=== PATIENT | female | born 1955 | race Caucasian/White ===

== ENCOUNTER 2024-11-03 21:00 | Outpatient (BNV) | payer OTHER, SELFPAY | END 2024-11-05 21:05 | PROVIDERS: Admitting Provider Psychiatry & Neurology Psychiatry; PCP Internal Medicine; Visit Provider Internal Medicine Cardiovascular Disease | DX: R00.0 Tachycardia, unspecified (principal) | CPT/HCPCS: 93010 ==

== ENCOUNTER 2024-11-03 21:00 | Outpatient (BNV) | payer OTHER, SELFPAY | END 2024-11-04 14:52 | PROVIDERS: Admitting Provider Psychiatry & Neurology Psychiatry; PCP Internal Medicine; Visit Provider Radiology Diagnostic Radiology | DX: R41.0 Disorientation, unspecified (principal) | CPT/HCPCS: 70450 ==

== ENCOUNTER 2024-11-03 21:00 | Inpatient (IN) | payer OTHER, SELFPAY ==
--- NOTE | ~2024-11-03 | CT_ITS ---
EXAMINATION: CT HEAD WITHOUT CONTRAST CLINICAL INFORMATION: Increased confusion. COMPARISON: None available. TECHNIQUE: Contiguous axial imaging was performed from the skull base to vertex without intravenous administration of contrast. This CT examination was performed using dose optimization techniques as appropriate, variously including the following: *Automated exposure control *Adjustment of mA and/or kV according to patient size (this includes techniques or standardized protocols for targeted exams where dose is matched to indication/reason for exam; i.e. extremities or head) *Use of iterative reconstruction technique DLP: 594 mGy/cm. FINDINGS: There is no acute intra-axial, extra-axial bleed, masses or midline shift. There is no acute infarction evolution. There is no edema. The brenner to white matter differentiation is maintained normal. The lateral ventricles are symmetrical in size and configuration without enlargement. Bone windows reveal no calvarial abnormality. Bilateral paranasal sinuses and mastoid air cells are well-aerated. CT/CT head/brain wo IV con IMPRESSION: No acute intracranial process seen. Electronically signed by: Mark John MD 11/04/2024 03:59 PM EDT
[2024-11-03 21:33] VITALS: BMI 17.4
[2024-11-03 21:34] VITALS: BP 154/74; PULSE 77; RESP 18; TEMP 36.6; O2SAT 99
--- NOTE | 2024-11-03 22:43 | PHA.MEDREC ---
Pharmacy Consult ? Medication Reconciliation Pharmacy has reviewed the medication reconciliation, utilized list from [facility], note from Dr. Gonsalez.
--- NOTE | 2024-11-03 22:51 | PC.ADMIT ---
Addendum entered by Frank Haque RN 11/04/24 07:13: patient arrived on unit 11/03/24 at 2145 (9:45pm) not 1225 Original Note: Patient arrived on unit via stretcher 11/03/24@1225. She is a CV, calm, cooperative, A&O to person, place and time but has limited insight and difficulty recalling historical events. She was cooperative with admission process. She reports loss of appetite but ate 2 sandwiches and drank 3 cranberry juices during admission. she also ordered a good breakfast. Methadone on hold d/t ER report she hasn't taken it in a week and we are unable to verify last dose. Patient does not display any S/S withdrawal or discomfort, Allergy to PCN. Psych Dx: Psychotic d/o NOS, Schizophrenia, Medical Dx: Osteoporosis, Chronic Hepatitis, Asthma, Opioid dependence, GERD, abnormal QT interval, and HIV. History of Anxiolytic/Benzo, IV drug use in remission for many years. she denies Tobacco, ETOH or recreational drug use. She is unsure why EMS was called to her apartment, it reportedly was empty of furniture or food, she reportedly threw out all her medications last week.
--- NOTE | 2024-11-03 22:52 | P.CNHOSGPS_ITS ---
History of Present Illness Data of Consult Service Date: 11/03/24 Requesting physician: Joesph Harrell Primary Care Provider: Lakia Valenzuela MD [facility] Reason for consult: Medical Physical Patient is a 69-year-old female with past medical history HIV undetectable on Biktarvy, hepatitis-C, IV drug abuse, opioid and benzodiazepine use disorder on methadone, osteoporosis, , hypertension, weight loss was seen on the [facility] psych unit for admission physical. Patient awake, alert and orientated x3 cooperative with exam. Patient states she no longer had a car and was unable to get to the grocery store and had minimal access to food which led to her weight loss. Patient states her HIV is under control an undetectable on Biktarvy. Patient believes she had hepatitis-C in the past but received treatment. Patient states that she was an IV drug user years ago with no complications including endocarditis. Patient states she does have a murmur. Patient states it has been many years since she used opioids and benzodiazepines excessively. Patient denies experiencing an overdose or requiring cardiopulmonary resuscitation. Patient denies any history of surgeries and reports an allergy to penicillin many many years ago. Patient can not recall the reaction. Patient denies any food allergies. Review of Systems Review of Systems: Patient currently denies any chest pain, shortness of breath at rest or with exertion, abdominal pain, nausea, vomiting, constipation or diarrhea. Patient denies any recent falls or trauma. Patient denies any visual changes, dysphagia or loss of appetite noting patient's weight loss. Pt deneis dysuria, abnormnal vaginal discharge, hx of STDs (chlamydia, gonorrhea, syphillis). Pt believes she may have had Hep C and is now ok after tx? Yes all other systems are reviewed and are negative [facility] Medical History (Updated 11/03/24 @ 23:03 [facility] Osteoporosis HTN (hypertension) Cognitive capacity: Alert and orientated x3 Functional capacity: independent ambulation Patient : No Pertinent family history: Patient would not elaborate Patient did state she had never had any children Social History Household Members: Other Household Members Other:: patient lives alone Housing: Apartment Do you presently have visiting nurse or other home services: No Patient Tobacco Use Status: Never used Tobacco Smoked in Last 30 Days: No e-Cigarette/Vaping Use: Never Used Patient Interested in Nicotine Replacement: No Patient Given Instructions on How to Stop Smoking: No Second Hand Smoke Exposure: No Use of substances other than those prescribed or required for medical reasons: Yes Substance Use Type: Opiates and Other Substance Use Type Other:: Hx benzos Last Used Substance Other:: many years ago Currently Displaying Signs/Symptoms of Drug Intoxication Withdrawal: No Any prior treatment program specific to substance use: Yes Have you been hit, kicked, punched, or otherwise hurt by someone within the past year? If so, by whom?: No Do you feel safe in your current relationship?: No Current Relationship Is there a partner from a previous relationship who is making you feel unsafe now?: No Are you made to feel afraid or neglected: No Advance Directives: No Advance Directives Information Provided: No Do you have a plan to hurt others: No Plan Recently lost weight without trying: Yes How much weight loss: 2-13 pounds Eating poorly because of decreased appetite: Yes Nutrition screen score: 4 Nutrition Risks: No Nutritional Risk Patient : No : No Poor oral hygiene: No Ebola Risk: Travel/Contact With Anyone From Affected Area/s: No Has Patient Experienced Ebola Symptoms: No Meds Allergies Allergy/AdvReac Type Severity Reaction Status Date / Time Penicillins Allergy Unknown Verified 11/03/24 21:14 Active Medications: Current Medications Acetaminophen (Acetaminophen 325 Mg Tablet) 650 mg PO Q6H PRN PRN Reason: Headache/Pain, Scale 1-10 Al Hydroxide/Mg Hydroxide (Magnesium Hydrox/Alum Hydrox 30 Ml Oral.Susp) 30 ml PO Q6H PRN PRN Reason: Heartburn/Nausea Bictegravir/Emtricitabine/Tenofovir (Bictegrav/Emtricit/Tenofov Ala Tablet) 1 tab PO DAILY CHARLEY Clonazepam (Clonazepam 1 Mg Tablet) 1 mg PO BID PRN PRN Reason: anxiety Furosemide (Furosemide 20 Mg Tablet) 20 mg PO DAILY PRN; Protocol PRN Reason: swelling Hydroxyzine HCl (Hydroxyzine Hcl 25 Mg Tablet) 25 mg PO Q6H PRN PRN Reason: mild anxiety Magnesium Hydroxide (Milk Of Magnesia 30 Ml Oral.Susp) 30 ml PO DAILY PRN PRN Reason: Constipation Multivitamins/Vitamin C (Multivitamin Tablet) 1 tab PO DAILY CHARLEY Non-Formulary Medication (Methadone) 43 mg PO DAILY CHARLEY Olanzapine (Olanzapine 2.5 Mg Tablet) 2.5 mg PO Q6H PRN PRN Reason: Agitation Risperidone (Risperidone 1 Mg Tablet) 1 mg PO BEDTIME CHARLEY Trazodone HCl (Trazodone Hcl 50 Mg Tablet) 50 mg PO BEDTIME MRX1 PRN PRN Reason: Insomnia Trazodone HCl (Trazodone Hcl 25 Mg Halftab) 25 mg PO BID PRN PRN Reason: Insomnia Home Medications ?Medication ?Instructions ?Recorded ?Confirmed ?Last Taken ?Type alendronate 70 mg tablet (Fosamax) 70 mg PO QWEEK 11/03/24 11/03/24 Unknown History bictegravir 50 mg-emtricitabine 1 tab PO DAILY 11/03/24 11/03/24 Unknown History 200 mg-tenofovir alafenam 25 mg tablet (Biktarvy) calcium 600 mg (as carbonate)-vit 1 tab PO DAILY 11/03/24 11/03/24 Unknown History D3 10 mcg (400 unit) chewable tablet (Calcium 600 with Vitamin D3) clonazepam 1 mg tablet 1 mg PO BID PRN anxiety 11/03/24 11/03/24 Unknown History furosemide 20 mg tablet 20 mg PO DAILY PRN swelling 11/03/24 11/03/24 Unknown History methadone 10 mg/5 mL oral solution 43 mg PO DAILY 11/03/24 11/03/24 Unknown History multivitamin 1 tab PO DAILY 11/03/24 11/03/24 Unknown History olanzapine 2.5 mg tablet 2.5 mg PO Q6H PRN Agitation 11/03/24 11/03/24 Unknown History risperidone 1 mg tablet (Risperdal) 1 mg PO BEDTIME 11/03/24 11/03/24 Unknown History trazodone 50 mg tablet 25 mg PO BID PRN Insomnia 11/03/24 11/03/24 Unknown History Results ECG Prior ECG tracings: not available for review Assessment and Plan (1) Underweight: Status: Acute (2) HIV (human immunodeficiency virus infection): Status: Acute (3) Opioid use disorder: Status: Acute Plan Patient is a 69-year-old female with past medical history HIV undetectable on Biktarvy, hepatitis-C, IV drug abuse, opioid and benzodiazepine use disorder on methadone, osteoporosis, , hypertension, weight loss seen today for admitting physical and medical review. Most concerning with patient's current weight and BMI. Patient states she has not had access has a car. Patient has been walking excessively and using the bus which prompted further we ight loss with less access to food overall. Patient has been compliant with her medication and her methadone. Patient denies any other current medical issues. Underweight with a BMI of 17.4 -nutritional consultation ordered -adding ensure 3 times daily -per nursing patient has been eating all meals and has a good appetite -daily to weekly weights to monitor -recommend routine labs including CBC and CMP HIV on Biktarvy -patient states her HIV is undetectable on current medication -patient believes she had hepatitis-C in the past but not hepatitis B -no records currently available for past testing, recommend hepatitis panel for baseline -recommend baseline labs CBC and CMP to ensure liver function stable and to rule out anemia Opioid use disorder with history of IV drug abuse -patient denies history of endocarditis but does have a murmur 2/6 systolic -patient appears stable, echocardiogram currently not indicated as pt presents hemodynamically stable and euvolemic -recommend EKG if not already done HTN -continue Lasix, monitor closely -if systolic remains over 140 consistently please reconsult hospitalist for further management -low-sodium diet Thank you for this consultation. Hospitalist will be signing off. Please re- consult with any further concerns or questions. Physical Exam Vital Signs: Last Vital Signs Temp 97.8 F 11/03/24 21:34 Pulse 77 11/03/24 21:34 Resp 18 11/03/24 21:34 BP 154/74 H 11/03/24 21:34 Pulse Ox 99 11/03/24 21:34 O2 Del Method Room Air 11/03/24 21:34 BMI result Body Mass Index 17.4 Alert and orientated X3, able to give adequate hx. Pt knows her medications and indications. Neuro: CN II-X11 intact, no deficits, visual acuity intact EYES: PERRLA, EOM intact ENT: hearing intact, no issues with swallowing, uvula midline, lips moist, nares patent no epistaxis Cardiac: S1 S2 RRR, II/ systolic murmur, no JVD, no edema in Lower ext Pulmonary: lungs clear to ausculation B Abdominal: BS active in all 4 quadrants, no guarding, tenderness, rebounding MSK: strength 5/5 upper and lower extremities : no CVA tenderness no bladder distension Extremities: no edema in lower extremities, PT and DP pulses palpable +2 Psych: mood stable, judgement and insight good SKin: brusing L hand from previous IV site, small abrasion on L agarwal, no drainage or swelling Pt is very thin, underweight. Neuro Cranial nerves: Yes CN's II-XII intact bilaterally
[2024-11-03] MEDS: risperiDONE 1 MG TABLET PO (23:21)
--- NOTE | 2024-11-04 08:16 | PC.NURSE ---
Pt receives methadone therapy. Pt reports she attends [facility] , [address], [facility]. Phone number [phone]. Spoke with KINA Cole in methadone clinic. Kelsey reported that Zakiya receives 43mg dose of methadone daily , she last went to the clinic to miner pick methadone on October 30, where she received a dose to take immediately in front of the RN, and left with 13 doses (of 43 mg methadone) to take home and self administer.
--- NOTE | 2024-11-04 08:52 | PC.NURSE ---
Pt BP: 182/85 pulse 98. Pt denies any symptoms. Non noted.
[2024-11-04] MEDS: Multivitamin TABLET 1 TAB PO (08:53)
[2024-11-04 09:00] VITALS: BP 183/85; PULSE 92; RESP 15; TEMP 36.5; O2SAT 100
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
[2024-11-04 09:28] LABS: Estimated Average Glucose 111 mg/dL; Hemoglobin A1C 124.9273 umol/L; Hemoglobin A1c % 5.5 % (<6.0); Total Hemoglobin (HGBA1C) 3411.0789 umol/L
[2024-11-04 09:31] LABS: Cholesterol 170 mg/dL (<200); HDL Cholesterol 73 mg/dL (>40); LDL Cholesterol Calculated 81 mg/dL (<100); Triglycerides 81 mg/dL (<150)
--- NOTE | 2024-11-04 10:02 | HE.PHANOTE ---
Re Methadone Received verification from Nursing. patient last got 43mg on 11/03/24 @ [facility] ER.
[2024-11-04 10:17] VITALS: BP 119/62
[2024-11-04 10:29] VITALS: BP 191/95
[2024-11-04] MEDS: amLODIPine Besylate 2.5 MG TABLET PO (10:29)
[2024-11-04] MEDS: Bictegrav/Emtricit/Tenofov Ala TABLET 1 TAB PO (10:30)
[2024-11-04] MEDS: methADONE HCl 20 MG/2 ML ORAL.CONC 43 MG PO (10:30)
[2024-11-04 12:08] LABS: MANUAL DIFF FLAG NO
[2024-11-04 12:11] LABS: Basophils Percent Auto 0.3 % (0-2); Eosinophils Absolute Auto 0.1 X10*3/uL (0.0-0.4); Eosinophils Percent Auto 0.9 % (0-4); Hematocrit 37.1 % (37.0-47.0); Hemoglobin 12.2 g/dl (12.0-16.0); Imm Gran Abs Auto 0.02 X10*3/uL (0.00-0.03); Imm Gran Pct Auto 0.3 % (0.0-0.4); Lymphocytes Absolute Auto 1.1 X10*3/uL (1.2-4.9); Lymphocytes Percent Auto 19.5 % (20-40); Mean Corpuscular HGB Conc 32.9 g/dl (31.0-35.0); Mean Corpuscular Hemoglobin 32.3 pg (27.0-33.0); Mean Corpuscular Volume 98.1 fL (80.0-98.0); Mean Platelet Volume 12.8 fL (9.4-12.3); Monocytes Absolute Auto 0.4 X10*3/uL (0.1-1.2); Monocytes Percent Auto 6.8 % (2-11); Neutrophils Absolute Auto 4.2 x10*3/uL (2.0-8.3); Neutrophils Percent Auto 72.2 % (45-73); Platelet Count 107 X10*3/uL (160-400); Red Blood Count 3.78 X10*6/uL (4.20-5.50); Red Cell Distribution Width 12.2 % (11.0-16.0); White Blood Count 5.9 X10*3/uL (4.8-10.8)
[2024-11-04 12:26] LABS: Alanine Aminotransferase 28 U/L (0-31); Albumin Level 4.4 g/dL (3.5-5.0); Alkaline Phosphatase 77 U/L (39-117); Anion Gap 12 (12-20); Aspartate Amino Transferase 29 U/L (5-31); Bilirubin Total 0.5 mg/dL (0.0-1.0); Blood Urea Nitrogen 23 mg/dL (9-16); Calcium 9.3 mg/dL (8.4-10.2); Carbon Dioxide 31 mmol/L (22-29); Chloride 102 mmol/L (96-108); Creatinine Clr Calc Pharmacy 40.4; Estimated Glomerular Filt Rate > 60; Glucose Random 155 mg/dL (60-115); Potassium 4.1 mmol/L (3.3-5.1); Sodium 141 mmol/L (135-145); Total Protein 7.3 g/dL (6.5-8.0)
[2024-11-04 13:01] LABS: Folate 17.8 ng/mL (> or = 4.0); Vitamin B12 676 pg/mL (200-900)
[2024-11-04 20:00] VITALS: BP 175/79; PULSE 92; RESP 16; TEMP 36.6; O2SAT 97
[2024-11-04] MEDS: OLANZapine 5 MG TABLET PO (20:34)
[2024-11-04] MEDS: clonazePAM 0.5 MG TABLET PO (21:47)
[2024-11-05 08:00] VITALS: BP 184/91; PULSE 102; RESP 16; TEMP 37.2; O2SAT 99
[2024-11-05] MEDS: methADONE HCl 20 MG/2 ML ORAL.CONC 43 MG PO (08:24)
[2024-11-05] MEDS: Multivitamin TABLET 1 TAB PO (08:25)
[2024-11-05] MEDS: OLANZapine 2.5 MG TABLET PO (08:25)
[2024-11-05] MEDS: Bictegrav/Emtricit/Tenofov Ala TABLET 1 TAB PO (08:25)
[2024-11-05] MEDS: clonazePAM 0.5 MG TABLET PO (08:41)
[2024-11-05 09:37] VITALS: BP 170/84
[2024-11-05] MEDS: amLODIPine Besylate 2.5 MG TABLET PO (09:46)
[2024-11-05 11:58] LABS: RPR Rapid Plasma Reagin NON-REACTIVE (NON-REACTIVE)
[2024-11-05 13:04] VITALS: BMI 17.4
--- NOTE | 2024-11-05 13:09 | HO.PSYCHPN ---
Subjective Subjective Date of Service: 11/05/24 Reason For Visit: Psychotic disorder unspecified, Schizophrenia Subjective Notes: Conditional Voluntary Interim History: Pt slept through the night. She reports feeling tired, less appetite but attempting to eat. She does not present as overly paranoid, nor over fearful, poverty of thought. No SI/HI. MOCA completed showed significant impairment in executive function. Taking medications as prescribed. BP consistently elevated. Mental Status Exam Mental Status Exam Narrative: Appearance: wearing hospital gown, thin, malnourished, in NAD Behavior: cooperative Psychomotor: no agitation or retardation noted. tremulous. Speech: mostly clear, some delayed in response, spontaneous TP: mostly linear, some poverty of thought TC: having difficulty urinating Mood: anxious Affect: congruent, somewhat constricted SI: denies HI: denies VH/AH: denies but appears at times internally preoccupied. Delusions: no overt delusions, but some bizarre behaviors she can't completely explain like throwing medications because they don't work. giving up furniture Insight/judgment: impaired x 2. Memory/cog: alert, oriented x3 not so much about situation, continues to report she is here due to difficulty urinating. MOCA completed on 11/05/2024 scored 19/30 most impairements in visuospatial/executive (2/5), naming (2/3), language fluency (0/1), recall (3/5). Orientation to month/year/place/day/date/city intact. Diagnostics Vital Signs (24Hr): Vital Signs - 24 hr 11/04/24 20:00 11/05/24 08:00 11/05/24 09:37 Temperature 98 F 98.9 F Pulse Rate 92 102 H Respiratory Rate 16 16 Blood Pressure 175/79 H 184/91 H 170/84 H Pulse Oximetry 97 99 Oxygen Delivery Method Room Air Room Air BMI result Body Mass Index 17.4 Labs 11/04/24 11:53 11/04/24 11:53 Labs: Laboratory Results - last 48 hr 11/04/24 11/04/24 09:12 11:53 WBC 5.9 RBC 3.78 L Hgb 12.2 Hct 37.1 MCV 98.1 H MCH 32.3 MCHC 32.9 RDW 12.2 Plt Count 107 L MPV 12.8 H Immature Gran % (Auto) 0.3 Neut % (Auto) 72.2 Lymph % (Auto) 19.5 L Crenshaw % (Auto) 6.8 Eos % (Auto) 0.9 Baso % (Auto) 0.3 Lymph # (Auto) 1.1 L Cren[place] # (Auto) 0.4 Eos # (Auto) 0.1 Baso # (Auto) 0.0 Abs Immat Gran (auto) 0.02 Absolute Neuts (auto) 4.2 Absolute Nucleated RBC 0.000 Nucleated RBC % (auto) 0.0 Sodium 141 Potassium 4.1 Chloride 102 Carbon Dioxide 31 H Anion Gap 12 BUN 23 H Creatinine 0.91 Estim Creat Clear Calc 40.4 Estimated GFR > 60 Random Glucose 155 H Estimat Average Glucose 111 Hemoglobin A1c % 5.5 Calcium 9.3 Total Bilirubin 0.5 AST 29 ALT 28 Alkaline Phosphatase 77 Total Protein 7.3 Albumin 4.4 Triglycerides 81 Cholesterol 170 LDL Cholesterol, Calc 81 HDL Cholesterol 73 Vitamin B12 676 Folate 17.8 RPR Titer TNP RPR NON-REACTIVE Imaging Radiology Impressions: ITS Impressions Head CT 11/04/24 14:52 IMPRESSION: No acute intracranial process seen. Electronically signed by: Mark John MD 11/04/2024 03:59 PM EDT RP Medications Medications Current Medications Acetaminophen (Acetaminophen 325 Mg Tablet) 650 mg PO Q6H PRN PRN Reason: Headache/Pain, Scale 1-10 Al Hydroxide/Mg Hydroxide (Magnesium Hydrox/Alum Hydrox 30 Ml Oral.Susp) 30 ml PO Q6H PRN PRN Reason: Heartburn/Nausea Bictegravir/Emtricitabine/Tenofovir (Bictegrav/Emtricit/Tenofov Ala Tablet) 1 tab PO DAILY [facility] Last Admin: 11/05/24 08:25 Dose: 1 tab Clonazepam (Clonazepam 0.5 Mg Tablet) 0.5 mg PO BID PRN PRN Reason: anxiety Last Admin: 11/05/24 08:41 Dose: 0.5 mg Furosemide (Furosemide 20 Mg Tablet) 20 mg PO DAILY PRN; Protocol PRN Reason: swelling Magnesium Hydroxide (Milk Of Magnesia 30 Ml Oral.Susp) 30 ml PO DAILY PRN PRN Reason: Constipation Methadone HCl (Methadone Hcl 20 Mg/2 Ml Oral.Conc) 43 mg PO DAILY@0800 [facility] Last Admin: 11/05/24 08:24 Dose: 43 mg Multivitamins/Vitamin C (Multivitamin Tablet) 1 tab PO DAILY [facility] Last Admin: 11/05/24 08:25 Dose: 1 tab Olanzapine (Olanzapine 2.5 Mg Tablet) 2.5 mg PO Q6H PRN PRN Reason: Agitation Olanzapine (Olanzapine 5 Mg Tablet) 5 mg PO BEDTIME [facility] Last Admin: 11/04/24 20:34 Dose: 5 mg Olanzapine (Olanzapine 2.5 Mg Tablet) 2.5 mg PO DAILY [facility] Last Admin: 11/05/24 08:25 Dose: 2.5 mg Trazodone HCl (Trazodone Hcl 50 Mg Tablet) 50 mg PO BEDTIME PRN PRN Reason: Insomnia Allergies Allergies Allergy/AdvReac Type Severity Reaction Status Date / Time Penicillins Allergy Unknown Verified 11/03/24 21:14 Assessment & Plan Assessment & Plan (1) Psychosis: Status: Acute Code(s): F29 - Unspecified psychosis not due to a substance or known physiological condition (2) Cognitive impairment: Status: Acute Code(s): R41.89 - Other symptoms and signs involving cognitive functions and awareness (3) Opioid use disorder: Status: Acute Code(s): F11.90 - Opioid use, unspecified, uncomplicated (4) HIV (human immunodeficiency virus infection): Status: Acute Code(s): Z21 - Asymptomatic human immunodeficiency virus [HIV] infection status Plan Ms. Chun is a 69 year-old woman who was transported via EMS to [facility] after she called 911 reporting difficulty urinating and losing weight. Per EMS, apartment was empty and there was no food. She presented with illogical thought formation, thought blocking, not oriented to situation. medical work up grossly unremarkable. On the unit, pt presents slightly more organized than described in medical records. However, she is not able to explain reasons for her to throw all medications. She reports she planned to move to [place], but unable to elaborate much. Her orientation to situation is also limited as she reports she is here due to difficulty urinating. Whle at [facility] she was started on risperidone, currently on 1mg po qhs. She does presented with EPS. Will change to olanzapine to help also with weight gain. Poor historian. Pending collateral information from sister, Anastasia Chun [phone]. She sees PCP Lakia Valenzuela. HIV provider Khari Zavala. Will contact them as well. Pt with no clear psychiatric hx, presenting with both s/s of psychosis and cognitive/memory deficits. We discussed risks, benefits and alternative treatment options. Will order UA, none completed at [facility]. Will also ordered head CT as part of memory/cognitive assessment. Will obtain HIV viral load, efficacy of tx and potential complications of HIV. Will repeat CBC, slightly lower Hbg on 11/03 from 10/28 at [facility]. A1c 5.5% Lipid panel wnl. I did add RPR. PLAN 11/05 amlodipine 2.5mg po once given for HTN. continue olanzapine. Reason for continued inpatient stay Substantial Risk for: inability to function Time Spent With Patient Time: Total time managing care of this patient today ____ minutes.
--- NOTE | 2024-11-05 13:17 | MHC.CLN ---
NUTRITION DIET=REGULAR. ENSURE TID PROVIDES 1050 KCALS, 60 G PROTEIN. AGREEABLE TO ENSURE SUPPLEMENT AND HAS HAD IN THE PAST, CURRENT INTAKE VERY GOOD. WAS REPORTED THAT PATIENT HAD NO FOOD IN HER HOME. REPORTS WEIGHT LOSS BUT UNKNOWN TIMEFRAME. QUALIFIES MODERATELY MALNOURISHED IN THE CONTEXT OF CHRONIC ILLNESS. FOLLOW FOR INTAKE AT MEALS. ENCOURAGE SNACKS AND SUPPLEMENT ABLE. SEE CLINICAL NUTRITION ASSESSMENT 11/05/24.
[2024-11-05 14:27] LABS: Appearance Urine Clear; Color Urine Yellow; Glucose Urine UA Negative (Negative); Leukocyte Esterase Urine Moderate (2+) (Negative); Nitrite Urine Negative (Negative); UMIC TRIGGER UACC YES; Urine Blood Negative (Negative); Urine Ketones Trace mg/dL (Negative); Urine Protein Negative (Neg-Trace)
[2024-11-05 14:31] LABS: Bacteria Urine None Seen (None Seen); Hyaline Casts Urine 0-2 /LPF (0-2); RBC Urine 0-2 /HPF (0-2); Squamous Epithelial Cell Urine 0-2 /HPF (0-2); UACC Culture Trigger YES
[2024-11-05] MEDS: OLANZapine 5 MG TABLET PO (20:20)
[2024-11-05] MEDS: traZODone HCL 50 MG TABLET PO (20:20)
[2024-11-05 20:50] VITALS: BP 172/84; PULSE 122; RESP 19; TEMP 37.6; O2SAT 96
--- NOTE | 2024-11-05 21:05 | ECG_ITS ---
Test Reason : Tachycardia Blood Pressure : */* mmHG Vent. Rate : 125 BPM Atrial Rate : 125 BPM P-R Int : 94 ms QRS Dur : 80 ms QT Int : 304 ms P-R-T Axes : 70 43 87 degrees QTcB Int : 438 ms Sinus tachycardia with short MN Otherwise normal ECG No previous ECGs available Referred By: Karyn Waggoner Electronically Signed By: Claudy Puentes
[2024-11-05 21:07] VITALS: BP 161/73; PULSE 100; RESP 18; TEMP 37.6; O2SAT 95
[2024-11-06] VITALS (7 sets, daily range): BP systolic 112–185; BP diastolic 56–81; PULSE 93–114; RESP 16–18; TEMP 36.7–37; O2SAT 95–100
[2024-11-06] MEDS: methADONE HCl 20 MG/2 ML ORAL.CONC 43 MG PO (08:28)
[2024-11-06] MEDS: OLANZapine 2.5 MG TABLET PO (08:29)
[2024-11-06] MEDS: amLODIPine Besylate 5 MG TABLET PO (08:29)
[2024-11-06] MEDS: Bictegrav/Emtricit/Tenofov Ala TABLET 1 TAB PO (08:29)
[2024-11-06] MEDS: Multivitamin TABLET 1 TAB PO (08:29)
--- NOTE | 2024-11-06 10:10 | PC.NURSE ---
Karyn Christianson notified of patient's BP 185/81, P 93 at 8am. BP re-check at 10 am 167/74, P 95. Karyn Christianson notified by lostant. Will continue to monitor.
[2024-11-06] MEDS: Furosemide 20 MG TABLET PO (12:47)
--- NOTE | 2024-11-06 14:30 | PC.NURSE ---
At 14:15 BP recheck 156/72, HR 124. Karyn Christianson notified, new order for cardiology consult. Will continue to monitor.
[2024-11-06] MEDS: 0.9 % Sodium Chloride 1,000 ML 100 ML IVCONT (17:56)
[2024-11-06] MEDS: OLANZapine 5 MG TABLET PO (20:38)
[2024-11-07 08:00] VITALS: BP 193/79; PULSE 84; RESP 14; TEMP 36.6; O2SAT 98
[2024-11-07] MEDS: Multivitamin TABLET 1 TAB PO (08:32)
[2024-11-07] MEDS: amLODIPine Besylate 5 MG TABLET PO (08:32)
[2024-11-07] MEDS: Bictegrav/Emtricit/Tenofov Ala TABLET 1 TAB PO (08:32)
[2024-11-07] MEDS: OLANZapine 2.5 MG TABLET PO (08:33)
[2024-11-07] MEDS: methADONE HCl 20 MG/2 ML ORAL.CONC 43 MG PO (08:33)
[2024-11-07 09:05] LABS: HIV RNA PCR Qn Copies NOT DETECTED copies/mL (NOT DETECTED); HIV RNA PCR Qn Log Copies NOT DETECTED (NOT DETECTED)
[2024-11-07 10:30] VITALS: BP 140/67; PULSE 88
[2024-11-07 10:38] VITALS: BP 144/68; PULSE 93
[2024-11-07 12:48] VITALS: BP 144/69; PULSE 87
[2024-11-07] MEDS: 0.9 % Sodium Chloride Flush 3 ML SYRINGE IVFLUSH (13:32)
[2024-11-07] MEDS: 0.9 % Sodium Chloride 1,000 ML 100 ML IVCONT (13:38)
--- NOTE | 2024-11-07 13:49 | MHC.CLN ---
F/U DIET=REGULAR. ENSURE TID PROVIDES 1050 KCALS, 60 G PROTEIN. CURRENT INTAKE VERY GOOD, WITH MOST MEALS 100%. QUALIFIES MODERATELY MALNOURISHED IN THE CONTEXT OF CHRONIC ILLNESS. FOLLOW FOR INTAKE AT MEALS. ENCOURAGE SNACKS AND SUPPLEMENT ABLE.
--- NOTE | 2024-11-07 14:15 | P.CONCA_ITS ---
History of Present Illness History of Present Illness Date of Service: 11/07/24 Requesting physician: Teddy Amaro Chief complaint: Psychotic disorder unspecified, Schizophrenia Narrative: 69-year-old female with schizophrenia who is currently in the inpatient psych facility. We have been asked to see her for dizziness and lightheadedness. She is saying that when she tries to sit up and stand she gets lightheaded. We check orthostatic vital signs on her yesterday and she was orthostatic. She has unintentional weight loss and has not been eating and drinking. It appears home medications have PRN Lasix. [facility] Past Medical History Medical History Osteoporosis HTN (hypertension) Social History Social History Household Members: Other Household Members Other:: patient lives alone Housing: Apartment Do you presently have visiting nurse or other home services: No Patient Tobacco Use Status: Never used Tobacco Smoked in Last 30 Days: No e-Cigarette/Vaping Use: Never Used Patient Interested in Nicotine Replacement: No Patient Given Instructions on How to Stop Smoking: No Second Hand Smoke Exposure: No Use of substances other than those prescribed or required for medical reasons: Yes Substance Use Type: Opiates and Other Substance Use Type Other:: Hx benzos Last Used Substance Other:: many years ago Currently Displaying Signs/Symptoms of Drug Intoxication Withdrawal: No Any prior treatment program specific to substance use: Yes Have you been hit, kicked, punched, or otherwise hurt by someone within the past year? If so, by whom?: No Do you feel safe in your current relationship?: No Current Relationship Is there a partner from a previous relationship who is making you feel unsafe now?: No Are you made to feel afraid or neglected: No Advance Directives: No Advance Directives Information Provided: No Do you have thoughts of harming others: None Do you have a plan to hurt others: No Plan Recently lost weight without trying: Yes How much weight loss: 2-13 pounds Eating poorly because of decreased appetite: Yes Nutrition screen score: 4 Nutrition Risks: No Nutritional Risk Patient : No : No Poor oral hygiene: No service: No Sexual orientation: Straight/Heterosexual Travel History Ebola Risk: Travel/Contact With Anyone From Affected Area/s: No Has Patient Experienced Ebola Symptoms: No Meds Allergies Allergy/AdvReac Type Severity Reaction Status Date / Time Penicillins Allergy Unknown Verified 11/03/24 21:14 Active Medications: Current Medications Acetaminophen (Acetaminophen 325 Mg Tablet) 650 mg PO Q6H PRN PRN Reason: Headache/Pain, Scale 1-10 Al Hydroxide/Mg Hydroxide (Magnesium Hydrox/Alum Hydrox 30 Ml Oral.Susp) 30 ml PO Q6H PRN PRN Reason: Heartburn/Nausea Amlodipine Besylate (Amlodipine Besylate 5 Mg Tablet) 5 mg PO DAILY [facility]; Protocol Last Admin: 11/07/24 08:32 Dose: 5 mg Bictegravir/Emtricitabine/Tenofovir (Bictegrav/Emtricit/Tenofov Ala Tablet) 1 tab PO DAILY [facility] Last Admin: 11/07/24 08:32 Dose: 1 tab Clonazepam (Clonazepam 0.5 Mg Tablet) 0.5 mg PO BID PRN PRN Reason: anxiety Last Admin: 11/05/24 08:41 Dose: 0.5 mg Furosemide (Furosemide 20 Mg Tablet) 20 mg PO DAILY PRN; Protocol PRN Reason: swelling Last Admin: 11/06/24 12:47 Dose: 20 mg Sodium Chloride (Ns) 1,000 mls @ 100 mls/hr IVCONT .Q10H [facility] Last Admin: 11/07/24 13:38 Dose: 100 mls/hr Magnesium Hydroxide (Milk Of Magnesia 30 Ml Oral.Susp) 30 ml PO DAILY PRN PRN Reason: Constipation Methadone HCl (Methadone Hcl 20 Mg/2 Ml Oral.Conc) 43 mg PO DAILY@0800 [facility] Last Admin: 11/07/24 08:33 Dose: 43 mg Multivitamins/Vitamin C (Multivitamin Tablet) 1 tab PO DAILY [facility] Last Admin: 11/07/24 08:32 Dose: 1 tab Olanzapine (Olanzapine 2.5 Mg Tablet) 2.5 mg PO Q6H PRN PRN Reason: Agitation Olanzapine (Olanzapine 5 Mg Tablet) 5 mg PO BEDTIME [facility] Last Admin: 11/06/24 20:38 Dose: 5 mg Olanzapine (Olanzapine 2.5 Mg Tablet) 2.5 mg PO DAILY [facility] Last Admin: 11/07/24 08:33 Dose: 2.5 mg Sodium Chloride (0.9 % Sodium Chloride Flush 3 Ml Syringe) 3 ml IVFLUSH QSHIFT [facility] Last Admin: 11/07/24 13:32 Dose: 3 ml Trazodone HCl (Trazodone Hcl 50 Mg Tablet) 50 mg PO BEDTIME PRN PRN Reason: Insomnia Last Admin: 11/05/24 20:20 Dose: 50 mg Home Medications ?Medication ?Instructions ?Recorded ?Confirmed ?Last Taken ?Type alendronate 70 mg tablet (Fosamax) 70 mg PO QWEEK 11/03/24 11/03/24 Unknown History bictegravir 50 mg-emtricitabine 1 tab PO DAILY 11/03/24 11/03/24 Unknown History 200 mg-tenofovir alafenam 25 mg tablet (Biktarvy) calcium 600 mg (as carbonate)-vit 1 tab PO DAILY 11/03/24 11/03/24 Unknown History D3 10 mcg (400 unit) chewable tablet (Calcium 600 with Vitamin D3) clonazepam 1 mg tablet 1 mg PO BID PRN anxiety 11/03/24 11/03/24 Unknown History furosemide 20 mg tablet 20 mg PO DAILY PRN swelling 11/03/24 11/03/24 Unknown History methadone 10 mg/5 mL oral solution 43 mg PO DAILY 11/03/24 11/04/24 Unknown History multivitamin 1 tab PO DAILY 11/03/24 11/03/24 Unknown History olanzapine 2.5 mg tablet 2.5 mg PO Q6H PRN Agitation 11/03/24 11/03/24 Unknown History risperidone 1 mg tablet (Risperdal) 1 mg PO BEDTIME 11/03/24 11/03/24 Unknown History trazodone 50 mg tablet 25 mg PO BID PRN Insomnia 11/03/24 11/03/24 Unknown History Physical Exam 2 Vital Signs: Vital Signs: Last Vital Signs Temp 97.8 F 11/07/24 08:00 Pulse 87 11/07/24 12:48 Resp 14 11/07/24 08:00 BP 144/69 H 11/07/24 12:48 Pulse Ox 98 11/07/24 08:00 O2 Del Method Room Air 11/07/24 08:00 BMI result Body Mass Index 17.4 GENERAL APPEARANCE: in no acute distress, thin/malnourished. NECK: no carotid bruit, no jugular venous distention. SKIN: no suspicious lesions, warm and dry. HEART: no murmurs, regular rate and rhythm. LUNGS: clear to auscultation bilaterally. ABDOMEN: soft, nontender. EXTREMITIES: no edema. PERIPHERAL PULSES: equal. NEUROLOGIC: No gross deficits, AAO X 3 Objective Labs and Meds 11/04/24 11:53 11/04/24 11:53 Lab results: Laboratory Results - last 24 hr 11/04/24 11:53 HIV-1 RNA copies/mL NOT DETECTED HIV-1 RNA logcopies/mL NOT DETECTED Assessment and Plan (1) Dizziness: Status: Acute Plan 69 year female with schizophrenia who has been complaining of dizziness. We checked orthostatic vital signs yesterday and they were positive. She was given 1 L of fluids. She is saying she is feeling better today. Her main issue is that she is not eating and drinking and has unintentional weight loss currently. This needs further workup. Encouraged her to drink more. Avoid any diuretics. Blood pressure is elevated. I think she can be started on 2.5 mg amlodipine daily. Would not titrate the dose currently. Thank you for allowing me to participate in the care of your patient. Please feel free to contact me if you have any questions. Procedures Date of Service Date of Service: 11/07/24
--- NOTE | 2024-11-07 15:41 | P.PNPSI_ITS ---
Subjective Subjective Date of Service: 11/07/24 Reason For Visit: Psychotic disorder unspecified, Schizophrenia Subjective Notes: Conditional Voluntary Interim History: Pt slept through the night. She reported feeling dizzy, yesterday had ortho changes to BP, was given IV fluids. She was seen by cardiology today. Although BP high, seems to be more erratic as it has gone from sbp in 190's to 119 after low dose of amlodipine. Cardiology recommends not to give higher dose of amlodipine than 2.5mg po daily. Pt reports she feels so, so She denies SI/HI. No overt psychosis or delusions. She is taking medications as prescribed. Medication Compliance: Yes Side effects from medications: No Diagnostics Vital Signs (24Hr): Vital Signs - 24 hr 11/06/24 15:50 11/06/24 15:52 11/06/24 15:54 Temperature Pulse Rate 94 104 H 114 H Respiratory Rate Blood Pressure 123/60 112/56 L 121/59 L Pulse Oximetry Oxygen Delivery Method 11/06/24 20:00 11/07/24 08:00 11/07/24 10:30 Temperature 98.1 F 97.8 F Pulse Rate 95 84 88 Respiratory Rate 16 14 Blood Pressure 135/70 193/79 H 140/67 H Pulse Oximetry 95 98 Oxygen Delivery Method Room Air Room Air 11/07/24 10:38 11/07/24 12:48 Temperature Pulse Rate 93 87 Respiratory Rate Blood Pressure 144/68 H 144/69 H Pulse Oximetry Oxygen Delivery Method BMI result Body Mass Index 17.4 Labs 11/04/24 11:53 11/04/24 11:53 Labs: Laboratory Results - last 48 hr 11/04/24 11:53 HIV-1 RNA copies/mL NOT DETECTED HIV-1 RNA logcopies/mL NOT DETECTED Imaging Radiology Impressions: ITS Impressions Head CT 11/04/24 14:52 IMPRESSION: No acute intracranial process seen. Electronically signed by: Mark John MD 11/04/2024 03:59 PM EDT RP Medications Medications Current Medications Acetaminophen (Acetaminophen 325 Mg Tablet) 650 mg PO Q6H PRN PRN Reason: Headache/Pain, Scale 1-10 Al Hydroxide/Mg Hydroxide (Magnesium Hydrox/Alum Hydrox 30 Ml Oral.Susp) 30 ml PO Q6H PRN PRN Reason: Heartburn/Nausea Amlodipine Besylate (Amlodipine Besylate 5 Mg Tablet) 5 mg PO DAILY [facility]; Protocol Last Admin: 11/07/24 08:32 Dose: 5 mg Bictegravir/Emtricitabine/Tenofovir (Bictegrav/Emtricit/Tenofov Ala Tablet) 1 tab PO DAILY [facility] Last Admin: 11/07/24 08:32 Dose: 1 tab Clonazepam (Clonazepam 0.5 Mg Tablet) 0.5 mg PO BID PRN PRN Reason: anxiety Last Admin: 11/05/24 08:41 Dose: 0.5 mg Furosemide (Furosemide 20 Mg Tablet) 20 mg PO DAILY PRN; Protocol PRN Reason: swelling Last Admin: 11/06/24 12:47 Dose: 20 mg Sodium Chloride (Ns) 1,000 mls @ 100 mls/hr IVCONT .Q10H [facility] Last Admin: 11/07/24 13:38 Dose: 100 mls/hr Magnesium Hydroxide (Milk Of Magnesia 30 Ml Oral.Susp) 30 ml PO DAILY PRN PRN Reason: Constipation Methadone HCl (Methadone Hcl 20 Mg/2 Ml Oral.Conc) 43 mg PO DAILY@0800 [facility] Last Admin: 11/07/24 08:33 Dose: 43 mg Multivitamins/Vitamin C (Multivitamin Tablet) 1 tab PO DAILY [facility] Last Admin: 11/07/24 08:32 Dose: 1 tab Olanzapine (Olanzapine 2.5 Mg Tablet) 2.5 mg PO Q6H PRN PRN Reason: Agitation Olanzapine (Olanzapine 5 Mg Tablet) 5 mg PO BEDTIME [facility] Last Admin: 11/06/24 20:38 Dose: 5 mg Olanzapine (Olanzapine 2.5 Mg Tablet) 2.5 mg PO DAILY [facility] Last Admin: 11/07/24 08:33 Dose: 2.5 mg Sodium Chloride (0.9 % Sodium Chloride Flush 3 Ml Syringe) 3 ml IVFLUSH QSHIFT [facility] Last Admin: 11/07/24 13:32 Dose: 3 ml Trazodone HCl (Trazodone Hcl 50 Mg Tablet) 50 mg PO BEDTIME PRN PRN Reason: Insomnia Last Admin: 11/05/24 20:20 Dose: 50 mg Allergies Allergies Allergy/AdvReac Type Severity Reaction Status Date / Time Penicillins Allergy Unknown Verified 11/03/24 21:14 Assessment & Plan Assessment & Plan (1) Psychosis: Status: Acute Code(s): F29 - Unspecified psychosis not due to a substance or known physiological condition (2) Cognitive impairment: Status: Acute Code(s): R41.89 - Other symptoms and signs involving cognitive functions and awareness (3) Dizziness: Status: Acute Code(s): R42 - Dizziness and giddiness Assessment and Plan: Per cardiology: We checked orthostatic vital signs yesterday and they were positive. She was given 1 L of fluids. She is saying she is feeling better today. Her main issue is that she is not eating and drinking and has unintentional weight loss currently. This needs further workup. Encouraged her to drink more. Avoid any diuretics. Blood pressure is elevated. I think she can be started on 2.5 mg amlodipine daily. Would not titrate the dose currently. (4) Opioid use disorder: Status: Acute Code(s): F11.90 - Opioid use, unspecified, uncomplicated (5) HIV (human immunodeficiency virus infection): Status: Acute Code(s): Z21 - Asymptomatic human immunodeficiency virus [HIV] infection status Plan Ms. Chun is a 69 year-old woman who was transported via EMS to [facility] after she called 911 reporting difficulty urinating and losing weight. Per EMS, apartment was empty and there was no food. She presented with illogical thought formation, thought blocking, not oriented to situation. medical work up grossly unremarkable. On the unit, pt presents slightly more organized than described in medical records. However, she is not able to explain reasons for her to throw all medications. She reports she planned to move to [place], but unable to elaborate much. Her orientation to situation is also limited as she reports she is here due to difficulty urinating. Whle at [facility] she was started on risperidone, currently on 1mg po qhs. She does presented with EPS. Will change to olanzapine to help also with weight gain. Poor historian. Pending collateral information from sister, Anastasia Chun [phone]. She sees PCP Lakia Valenzuela. HIV provider Khari Zavala. Will contact them as well. Pt with no clear psychiatric hx, presenting with both s/s of psychosis and cognitive/memory deficits. We discussed risks, benefits and alternative treatment options. Will order UA, none completed at [facility]. Will also ordered head CT as part of memory/cognitive assessment. Will obtain HIV viral load, efficacy of tx and potential complications of HIV. Will repeat CBC, slightly lower Hbg on 11/03 from 10/28 at [facility]. A1c 5.5% Lipid panel wnl. I did add RPR. PLAN 11/05 amlodipine 2.5mg po once given for HTN. continue olanzapine. 11/06 continue tx. BP elevated again. RN reported bilat edema, given lasix 11/07 seen by cardiology due to dizziness, somewhat erradic BP as it can be elevated but drops drastically with lower doses of amlodipine. Cardiology reports keeping amlodipine at 2.5mg po daily, not increasing this any further. encourage fluids. hospitalist consult for unexpeted weight loss and anorexia. Reason for continued inpatient stay Substantial Risk for: inability to function Time Spent With Patient Time: Total time managing care of this patient today ____ minutes.
[2024-11-07] MEDS: clonazePAM 0.5 MG TABLET PO (18:35)
--- NOTE | 2024-11-07 18:38 | PC.NURSE ---
Lyric phillip stated she was having difficulty breathing. BP was elevated 172/86 and her HR was 109. She said she felt very anxious thinking she ate her dinner too fast. Given PRN klonopin and reassurance.
[2024-11-07 19:57] VITALS: BP 170/77; PULSE 99; RESP 18; TEMP 37.2; O2SAT 94
--- NOTE | 2024-11-07 20:08 | PM.EVENT ---
Event Note Date of Service: 11/07/24 Event Note: A new order was placed per Psychiatry for hospitalist consultation for noted weight loss with a BMI of 17.4. Patient already been seen on 11/03/2024 and recommendations were already made for nutritional consultation and ensure was started. Patient's weight should be monitored daily. Patient's albumin noted to be 4.4, WNL. Patient had stated prior to admission that she had limited resources to obtain food and was eating last over a long period of time. Patient has no correlating physical symptoms including nausea, vomiting, and abdominal pain, shortness of breath or hypoxia at rest or with exertion. Currently no indication to do diagnostics including CT of the chest and abdomen. Patient will require follow-up as an outpatient to monitor her weight closely. Also requested routine labs which have been reviewed. Platelets came back at 108 and this is not relatively concerning as the platelet count remains above 100,000 with no evidence of spontaneous bleeding. Patient can follow-up as an outpatient with her PCP and/or Hematology. In addition patient was seen by Cardiology for evidence of orthostasis. Amlodipine is now 2.5 mg daily and patient should continue this with follow-up blood pressures as needed. This plan was reviewed met with my attending Dr. French and are available for further consultation if needed but at this time we will remain signed off. The nutritional consultation was placed. Time Spent With Patient Time: Total time managing care of this patient today ____ minutes.
[2024-11-07] MEDS: OLANZapine 5 MG TABLET PO (20:22)
[2024-11-07] MEDS: traZODone HCL 50 MG TABLET PO (20:22)
--- NOTE | 2024-11-08 00:38 | PC.NURSE ---
Issues with IVF order/provider notified/IVF order discontinued by the provider. Provider also notified us to discontinue IV access and flush order/discontinued as ordered/patient compliant.
[2024-11-08 07:57] VITALS: BP 183/81; PULSE 113; RESP 16; TEMP 36.4; O2SAT 96
[2024-11-08] MEDS: methADONE HCl 20 MG/2 ML ORAL.CONC 43 MG PO (07:59)
[2024-11-08] MEDS: OLANZapine 2.5 MG TABLET PO (08:00)
[2024-11-08] MEDS: amLODIPine Besylate 2.5 MG TABLET PO (08:00)
[2024-11-08] MEDS: Multivitamin TABLET 1 TAB PO (08:00)
[2024-11-08] MEDS: Bictegrav/Emtricit/Tenofov Ala TABLET 1 TAB PO (08:01)
[2024-11-08 08:30] VITALS: BP 176/84
[2024-11-08 09:14] VITALS: BP 160/76
--- NOTE | 2024-11-08 14:39 | P.PNPSI_ITS ---
Subjective Subjective Date of Service: 11/08/24 Reason For Visit: Psychotic disorder unspecified, Schizophrenia Interim History: no complaints or requests. per staff, poor PO intake. pedal edema improved with decrease in norvasc. got 2L IV fluids yesterday. Mental Status Exam Mental Status Exam Narrative: Appearance: wearing hospital gown, thin, malnourished, in NAD Behavior: cooperative Psychomotor: no agitation or retardation noted. tremulous. Speech: mostly clear, some delayed in response, spontaneous TP: mostly linear, some poverty of thought TC: no complaints Mood: not expressed Affect: congruent, somewhat constricted SI: denies HI: denies VH/AH: denies but appears at times internally preoccupied. Delusions: no overt delusions, but some bizarre behaviors she can't completely explain like throwing medications because they don't work. giving up furniture Insight/judgment: impaired x 2. Memory/cog: alert, oriented x3 not so much about situation, continues to report she is here due to difficulty urinating. MOCA completed on 11/05/2024 scored 19/30 most impairements in visuospatial/executive (2/5), naming (2/3), language fluency (0/1), recall (3/5). Orientation to month/year/place/day/date/city intact. Diagnostics Vital Signs (24Hr): Vital Signs - 24 hr 11/07/24 19:57 11/08/24 07:57 11/08/24 08:30 Temperature 98.9 F 97.5 F Pulse Rate 99 113 H Respiratory Rate 18 16 Blood Pressure 170/77 H 183/81 H 176/84 H Pulse Oximetry 94 96 Oxygen Delivery Method Room Air Room Air 11/08/24 09:14 Temperature Pulse Rate Respiratory Rate Blood Pressure 160/76 H Pulse Oximetry Oxygen Delivery Method BMI result Body Mass Index 17.4 Labs 11/04/24 11:53 11/04/24 11:53 Labs: Laboratory Results - last 48 hr 11/04/24 11:53 HIV-1 RNA copies/mL NOT DETECTED HIV-1 RNA logcopies/mL NOT DETECTED Imaging Radiology Impressions: ITS Impressions Head CT 11/04/24 14:52 IMPRESSION: No acute intracranial process seen. Electronically signed by: Mark John MD 11/04/2024 03:59 PM EDT Medications Medications Current Medications Acetaminophen (Acetaminophen 325 Mg Tablet) 650 mg PO Q6H PRN PRN Reason: Headache/Pain, Scale 1-10 Al Hydroxide/Mg Hydroxide (Magnesium Hydrox/Alum Hydrox 30 Ml Oral.Susp) 30 ml PO Q6H PRN PRN Reason: Heartburn/Nausea Amlodipine Besylate (Amlodipine Besylate 2.5 Mg Tablet) 2.5 mg PO DAILY [facility]; Protocol Last Admin: 11/08/24 08:00 Dose: 2.5 mg Bictegravir/Emtricitabine/Tenofovir (Bictegrav/Emtricit/Tenofov Ala Tablet) 1 tab PO DAILY [facility] Last Admin: 11/08/24 08:01 Dose: 1 tab Clonazepam (Clonazepam 0.5 Mg Tablet) 0.5 mg PO BID PRN PRN Reason: anxiety Last Admin: 11/07/24 18:35 Dose: 0.5 mg Magnesium Hydroxide (Milk Of Magnesia 30 Ml Oral.Susp) 30 ml PO DAILY PRN PRN Reason: Constipation Methadone HCl (Methadone Hcl 20 Mg/2 Ml Oral.Conc) 43 mg PO DAILY@0800 [facility] Last Admin: 11/08/24 07:59 Dose: 43 mg Multivitamins/Vitamin C (Multivitamin Tablet) 1 tab PO DAILY [facility] Last Admin: 11/08/24 08:00 Dose: 1 tab Olanzapine (Olanzapine 2.5 Mg Tablet) 2.5 mg PO Q6H PRN PRN Reason: Agitation Olanzapine (Olanzapine 5 Mg Tablet) 5 mg PO BEDTIME [facility] Last Admin: 11/07/24 20:22 Dose: 5 mg Olanzapine (Olanzapine 2.5 Mg Tablet) 2.5 mg PO DAILY [facility] Last Admin: 11/08/24 08:00 Dose: 2.5 mg Trazodone HCl (Trazodone Hcl 50 Mg Tablet) 50 mg PO BEDTIME PRN PRN Reason: Insomnia Last Admin: 11/07/24 20:22 Dose: 50 mg Allergies Allergies Allergy/AdvReac Type Severity Reaction Status Date / Time Penicillins Allergy Unknown Verified 11/03/24 21:14 Assessment & Plan Assessment & Plan (1) Psychosis: Status: Acute Code(s): F29 - Unspecified psychosis not due to a substance or known physiological condition (2) Cognitive impairment: Status: Acute Code(s): R41.89 - Other symptoms and signs involving cognitive functions and awareness (3) Dizziness: Status: Acute Code(s): R42 - Dizziness and giddiness Assessment and Plan: Per cardiology: We checked orthostatic vital signs yesterday and they were positive. She was given 1 L of fluids. She is saying she is feeling better today. Her main issue is that she is not eating and drinking and has unintentional weight loss currently. This needs further workup. Encouraged her to drink more. Avoid any diuretics. Blood pressure is elevated. I think she can be started on 2.5 mg amlodipine daily. Would not titrate the dose currently. (4) Opioid use disorder: Status: Acute Code(s): F11.90 - Opioid use, unspecified, uncomplicated (5) HIV (human immunodeficiency virus infection): Status: Acute Code(s): Z21 - Asymptomatic human immunodeficiency virus [HIV] infection status Plan Ms. Chun is a 69 year-old woman who was transported via EMS to [facility] after she called 911 reporting difficulty urinating and losing weight. Per EMS, apartment was empty and there was no food. She presented with illogical thought formation, thought blocking, not oriented to situation. medical work up grossly unremarkable. On the unit, pt presents slightly more organized than described in medical records. However, she is not able to explain reasons for her to throw all medications. She reports she planned to move to [place], but unable to elaborate much. Her orientation to situation is also limited as she reports she is here due to difficulty urinating. Whle at [facility] she was started on risperidone, currently on 1mg po qhs. She does presented with EPS. Will change to olanzapine to help also with weight gain. Poor historian. Pending collateral information from sister, Anastasia Chun [phone]. She sees PCP Lakia Valenzuela. HIV provider Khari Zavala. Will contact them as well. Pt with no clear psychiatric hx, presenting with both s/s of psychosis and cognitive/memory deficits. We discussed risks, benefits and alternative treatment options. Will order UA, none completed at [facility]. Will also ordered head CT as part of memory/cognitive assessment. Will obtain HIV viral load, efficacy of tx and potential complications of HIV. Will repeat CBC, slightly lower Hbg on 11/03 from 10/28 at [facility]. A1c 5.5% Lipid panel wnl. I did add RPR. PLAN 11/05 amlodipine 2.5mg po once given for HTN. continue olanzapine. 11/06 continue tx. BP elevated again. RN reported bilat edema, given lasix 11/07 seen by cardiology due to dizziness, somewhat erradic BP as it can be elevated but drops drastically with lower doses of amlodipine. Cardiology reports keeping amlodipine at 2.5mg po daily, not increasing this any further. encourage fluids. hospitalist consult for unexpeted weight loss and anorexia. 11/08: 2L IV fluids yesterday. no complaints today. continue current mgmt. Reason for continued inpatient stay Substantial Risk for: inability to function Time Spent With Patient Time: Total time managing care of this patient today ____ minutes.
[2024-11-08 19:53] VITALS: BP 160/83; PULSE 103; TEMP 37.1; O2SAT 95
[2024-11-08] MEDS: Acetaminophen 325 MG TABLET 650 MG PO (20:12)
[2024-11-08] MEDS: OLANZapine 5 MG TABLET PO (20:12)
[2024-11-08] MEDS: traZODone HCL 50 MG TABLET PO (20:13)
[2024-11-08] MEDS: clonazePAM 0.5 MG TABLET PO (20:13)
[2024-11-09 08:00] VITALS: BP 172/80; PULSE 98; RESP 18; TEMP 36.7; O2SAT 99
[2024-11-09] MEDS: methADONE HCl 20 MG/2 ML ORAL.CONC 43 MG PO (08:06)
[2024-11-09] MEDS: Bictegrav/Emtricit/Tenofov Ala TABLET 1 TAB PO (08:07)
[2024-11-09] MEDS: OLANZapine 2.5 MG TABLET PO (08:07)
[2024-11-09] MEDS: Multivitamin TABLET 1 TAB PO (08:07)
[2024-11-09] MEDS: amLODIPine Besylate 2.5 MG TABLET PO (08:08)
[2024-11-09 09:27] VITALS: BP 155/73
[2024-11-09 09:33] VITALS: BMI 19.0
[2024-11-09] MEDS: clonazePAM 0.5 MG TABLET PO ×2 (13:51→20:46)
--- NOTE | 2024-11-09 13:53 | HO.PSYCHPN ---
Subjective Subjective Date of Service: 11/09/24 Reason For Visit: Psychotic disorder unspecified, Schizophrenia Interim History: no questions or complaints. per staff, slept well. c/o anxiety, got klonopin last night. Mental Status Exam Mental Status Exam Narrative: Appearance: wearing hospital gown, thin, malnourished, in NAD Behavior: cooperative Psychomotor: no agitation or retardation noted. tremulous. Speech: mostly clear, some delayed in response, spontaneous TP: mostly linear, some poverty of thought TC: no complaints Mood: not expressed Affect: congruent, somewhat constricted SI: denies HI: denies VH/AH: denies but appears at times internally preoccupied. Delusions: no overt delusions, but some bizarre behaviors she can't completely explain like throwing medications because they don't work. giving up furniture Insight/judgment: impaired x 2. Memory/cog: alert, oriented x3 not so much about situation, continues to report she is here due to difficulty urinating. MOCA completed on 11/05/2024 scored 19/30 most impairements in visuospatial/executive (2/5), naming (2/3), language fluency (0/1), recall (3/5). Orientation to month/year/place/day/date/city intact. Diagnostics Vital Signs (24Hr): Vital Signs - 24 hr 11/08/24 19:53 11/09/24 08:00 11/09/24 09:27 Temperature 98.7 F 98.1 F Pulse Rate 103 H 98 Respiratory Rate 18 Blood Pressure 160/83 H 172/80 H 155/73 H Pulse Oximetry 95 99 Oxygen Delivery Method Room Air Room Air BMI result Body Mass Index 19.0 Labs 11/04/24 11:53 11/04/24 11:53 Imaging Radiology Impressions: ITS Impressions Head CT 11/04/24 14:52 IMPRESSION: No acute intracranial process seen. Electronically signed by: Mark John MD 11/04/2024 03:59 PM EDT Medications Medications Current Medications Acetaminophen (Acetaminophen 325 Mg Tablet) 650 mg PO Q6H PRN PRN Reason: Headache/Pain, Scale 1-10 Last Admin: 11/08/24 20:12 Dose: 650 mg Al Hydroxide/Mg Hydroxide (Magnesium Hydrox/Alum Hydrox 30 Ml Oral.Susp) 30 ml PO Q6H PRN PRN Reason: Heartburn/Nausea Amlodipine Besylate (Amlodipine Besylate 2.5 Mg Tablet) 2.5 mg PO DAILY [facility]; Protocol Last Admin: 11/09/24 08:08 Dose: 2.5 mg Bictegravir/Emtricitabine/Tenofovir (Bictegrav/Emtricit/Tenofov Ala Tablet) 1 tab PO DAILY [facility] Last Admin: 11/09/24 08:07 Dose: 1 tab Clonazepam (Clonazepam 0.5 Mg Tablet) 0.5 mg PO BID PRN PRN Reason: moderate anxiety Last Admin: 11/09/24 13:51 Dose: 0.5 mg Magnesium Hydroxide (Milk Of Magnesia 30 Ml Oral.Susp) 30 ml PO DAILY PRN PRN Reason: Constipation Methadone HCl (Methadone Hcl 20 Mg/2 Ml Oral.Conc) 43 mg PO DAILY@0800 [facility] Last Admin: 11/09/24 08:06 Dose: 43 mg Multivitamins/Vitamin C (Multivitamin Tablet) 1 tab PO DAILY [facility] Last Admin: 11/09/24 08:07 Dose: 1 tab Olanzapine (Olanzapine 2.5 Mg Tablet) 2.5 mg PO Q6H PRN PRN Reason: Agitation Olanzapine (Olanzapine 5 Mg Tablet) 5 mg PO BEDTIME [facility] Last Admin: 11/08/24 20:12 Dose: 5 mg Olanzapine (Olanzapine 2.5 Mg Tablet) 2.5 mg PO DAILY [facility] Last Admin: 11/09/24 08:07 Dose: 2.5 mg Trazodone HCl (Trazodone Hcl 50 Mg Tablet) 50 mg PO BEDTIME PRN PRN Reason: Insomnia Last Admin: 11/08/24 20:13 Dose: 50 mg Allergies Allergies Allergy/AdvReac Type Severity Reaction Status Date / Time Penicillins Allergy Unknown Verified 11/03/24 21:14 Assessment & Plan Assessment & Plan (1) Psychosis: Status: Acute Code(s): F29 - Unspecified psychosis not due to a substance or known physiological condition (2) Cognitive impairment: Status: Acute Code(s): R41.89 - Other symptoms and signs involving cognitive functions and awareness (3) Dizziness: Status: Acute Code(s): R42 - Dizziness and giddiness Assessment and Plan: Per cardiology: We checked orthostatic vital signs yesterday and they were positive. She was given 1 L of fluids. She is saying she is feeling better today. Her main issue is that she is not eating and drinking and has unintentional weight loss currently. This needs further workup. Encouraged her to drink more. Avoid any diuretics. Blood pressure is elevated. I think she can be started on 2.5 mg amlodipine daily. Would not titrate the dose currently. (4) Opioid use disorder: Status: Acute Code(s): F11.90 - Opioid use, unspecified, uncomplicated (5) HIV (human immunodeficiency virus infection): Status: Acute Code(s): Z21 - Asymptomatic human immunodeficiency virus [HIV] infection status Plan Ms. Chun is a 69 year-old woman who was transported via EMS to [facility] after she called 911 reporting difficulty urinating and losing weight. Per EMS, apartment was empty and there was no food. She presented with illogical thought formation, thought blocking, not oriented to situation. medical work up grossly unremarkable. On the unit, pt presents slightly more organized than described in medical records. However, she is not able to explain reasons for her to throw all medications. She reports she planned to move to [place], but unable to elaborate much. Her orientation to situation is also limited as she reports she is here due to difficulty urinating. Whle at [facility] she was started on risperidone, currently on 1mg po qhs. She does presented with EPS. Will change to olanzapine to help also with weight gain. Poor historian. Pending collateral information from sister, Anastasia Chun [phone]. She sees PCP Lakia Valenzuela. HIV provider Khari Zavala. Will contact them as well. Pt with no clear psychiatric hx, presenting with both s/s of psychosis and cognitive/memory deficits. We discussed risks, benefits and alternative treatment options. Will order UA, none completed at [facility]. Will also ordered head CT as part of memory/cognitive assessment. Will obtain HIV viral load, efficacy of tx and potential complications of HIV. Will repeat CBC, slightly lower Hbg on 11/03 from 10/28 at [facility]. A1c 5.5% Lipid panel wnl. I did add RPR. PLAN 11/05 amlodipine 2.5mg po once given for HTN. continue olanzapine. 11/06 continue tx. BP elevated again. RN reported bilat edema, given lasix 5/2 seen by cardiology due to dizziness, somewhat erradic BP as it can be elevated but drops drastically with lower doses of amlodipine. Cardiology reports keeping amlodipine at 2.5mg po daily, not increasing this any further. encourage fluids. hospitalist consult for unexpeted weight loss and anorexia. 11/08: 2L IV fluids yesterday. no complaints today. continue current mgmt. 11/09: stable presentation. recheck BMP. Reason for continued inpatient stay Substantial Risk for: inability to function Time Spent With Patient Time: Total time managing care of this patient today ____ minutes.
[2024-11-09 15:22] LABS: Anion Gap 12 (12-20); Blood Urea Nitrogen 30 mg/dL (9-16); Calcium 9.2 mg/dL (8.4-10.2); Carbon Dioxide 33 mmol/L (22-29); Chloride 101 mmol/L (96-108); Creatinine Clr Calc Pharmacy 29.9; Estimated Glomerular Filt Rate 39; Glucose Random 115 mg/dL (60-115); Potassium 4.4 mmol/L (3.3-5.1); Sodium 142 mmol/L (135-145)
[2024-11-09 18:55] VITALS: BP 146/77
[2024-11-09 20:07] VITALS: BP 145/67; PULSE 106; TEMP 38.3; O2SAT 96
[2024-11-09] MEDS: OLANZapine 5 MG TABLET PO (20:32)
[2024-11-09 20:49] VITALS: TEMP 37.9
[2024-11-09 22:27] VITALS: BP 153/75; PULSE 108; RESP 18; TEMP 37.3; O2SAT 94
[2024-11-10 06:00] VITALS: BMI 19.2
[2024-11-10 08:51] VITALS: BP 188/81; PULSE 101; RESP 16; TEMP 37.8; O2SAT 98
[2024-11-10] MEDS: amLODIPine Besylate 2.5 MG TABLET PO (08:52)
[2024-11-10] MEDS: Multivitamin TABLET 1 TAB PO (08:52)
[2024-11-10] MEDS: Bictegrav/Emtricit/Tenofov Ala TABLET 1 TAB PO (08:52)
[2024-11-10] MEDS: OLANZapine 2.5 MG TABLET PO (08:52)
[2024-11-10] MEDS: methADONE HCl 20 MG/2 ML ORAL.CONC 43 MG PO (08:59)
--- NOTE | 2024-11-10 09:48 | HO.PSYCHPN ---
Subjective Subjective Date of Service: 11/10/24 Reason For Visit: Psychotic disorder unspecified, Schizophrenia Subjective Notes: Conditional Voluntary Interim History: Pt slept through the night. She appears less thought blocking, poverty of thought. She reports feeling well physically. No behavioral concerns. No SI/HI. Plan for d/c this week. BP elevated, cardiology had recommended to keep amlodipine to 2.5mg po daily and encourage hydration. Review of Systems Review of Systems No SOB, No changes in vision. No constipation nor loose stools. Pt reports unplanned weight loss, difficulty urinating. Yes all other systems are reviewed and are negative Mental Status Exam Mental Status Exam Narrative: Appearance: wearing hospital gown, thin, malnourished, in NAD Behavior: cooperative Psychomotor: no agitation or retardation noted. tremulous. Speech: mostly clear, some delayed in response, spontaneous TP: mostly linear, some poverty of thought TC: no complaints Mood: not expressed Affect: congruent, somewhat constricted SI: denies HI: denies VH/AH: denies but appears at times internally preoccupied. Delusions: no overt delusions, but some bizarre behaviors she can't completely explain like throwing medications because they don't work. giving up furniture Insight/judgment: improving x 2. Memory/cog: alert, oriented x3 not so much about situation, continues to report she is here due to difficulty urinating. MOCA completed on 11/05/2024 scored 19/30 most impairements in visuospatial/executive (2/5), naming (2/3), language fluency (0/1), recall (3/5). Orientation to month/year/place/day/date/city intact. Diagnostics Vital Signs (24Hr): Vital Signs - 24 hr 11/09/24 18:55 11/09/24 20:07 11/09/24 20:49 Temperature 100.9 F H 100.2 F Pulse Rate 106 H Respiratory Rate Blood Pressure 146/77 H 145/67 H Pulse Oximetry 96 Oxygen Delivery Method Room Air 11/09/24 22:27 11/10/24 08:51 Temperature 99.1 F 100.0 F Pulse Rate 108 H 101 H Respiratory Rate 18 16 Blood Pressure 153/75 H 188/81 H Pulse Oximetry 94 98 Oxygen Delivery Method Room Air Room Air BMI result Body Mass Index 19.2 Labs 11/04/24 11:53 11/09/24 14:43 Labs: Laboratory Results - last 48 hr 11/09/24 14:43 Sodium 142 Potassium 4.4 Chloride 101 Carbon Dioxide 33 H Anion Gap 12 BUN 30 H Creatinine 1.34 Estim Creat Clear Calc 29.9 Estimated GFR 39 Random Glucose 115 Calcium 9.2 Imaging Radiology Impressions: ITS Impressions Head CT 11/04/24 14:52 IMPRESSION: No acute intracranial process seen. Electronically signed by: Mark John MD 11/04/2024 03:59 PM EDT RP Medications Medications Current Medications Acetaminophen (Acetaminophen 325 Mg Tablet) 650 mg PO Q6H PRN PRN Reason: Headache/Pain, Scale 1-10 Last Admin: 11/08/24 20:12 Dose: 650 mg Al Hydroxide/Mg Hydroxide (Magnesium Hydrox/Alum Hydrox 30 Ml Oral.Susp) 30 ml PO Q6H PRN PRN Reason: Heartburn/Nausea Amlodipine Besylate (Amlodipine Besylate 2.5 Mg Tablet) 2.5 mg PO DAILY [facility]; Protocol Last Admin: 11/10/24 08:52 Dose: 2.5 mg Bictegravir/Emtricitabine/Tenofovir (Bictegrav/Emtricit/Tenofov Ala Tablet) 1 tab PO DAILY [facility] Last Admin: 11/10/24 08:52 Dose: 1 tab Clonazepam (Clonazepam 0.5 Mg Tablet) 0.5 mg PO BID PRN PRN Reason: moderate anxiety Last Admin: 11/09/24 20:46 Dose: 0.5 mg Magnesium Hydroxide (Milk Of Magnesia 30 Ml Oral.Susp) 30 ml PO DAILY PRN PRN Reason: Constipation Methadone HCl (Methadone Hcl 20 Mg/2 Ml Oral.Conc) 43 mg PO DAILY@0800 [facility] Last Admin: 11/10/24 08:59 Dose: 43 mg Multivitamins/Vitamin C (Multivitamin Tablet) 1 tab PO DAILY [facility] Last Admin: 11/10/24 08:52 Dose: 1 tab Olanzapine (Olanzapine 2.5 Mg Tablet) 2.5 mg PO Q6H PRN PRN Reason: Agitation Olanzapine (Olanzapine 5 Mg Tablet) 5 mg PO BEDTIME [facility] Last Admin: 11/09/24 20:32 Dose: 5 mg Olanzapine (Olanzapine 2.5 Mg Tablet) 2.5 mg PO DAILY [facility] Last Admin: 11/10/24 08:52 Dose: 2.5 mg Trazodone HCl (Trazodone Hcl 50 Mg Tablet) 50 mg PO BEDTIME PRN PRN Reason: Insomnia Last Admin: 11/08/24 20:13 Dose: 50 mg Allergies Allergies Allergy/AdvReac Type Severity Reaction Status Date / Time Penicillins Allergy Unknown Verified 11/03/24 21:14 Assessment & Plan Assessment & Plan (1) Psychosis: Status: Acute Code(s): F29 - Unspecified psychosis not due to a substance or known physiological condition (2) Cognitive impairment: Status: Acute Code(s): R41.89 - Other symptoms and signs involving cognitive functions and awareness (3) Dizziness: Status: Acute Code(s): R42 - Dizziness and giddiness Assessment and Plan: Per cardiology: We checked orthostatic vital signs yesterday and they were positive. She was given 1 L of fluids. She is saying she is feeling better today. Her main issue is that she is not eating and drinking and has unintentional weight loss currently. This needs further workup. Encouraged her to drink more. Avoid any diuretics. Blood pressure is elevated. I think she can be started on 2.5 mg amlodipine daily. Would not titrate the dose currently. (4) Opioid use disorder: Status: Acute Code(s): F11.90 - Opioid use, unspecified, uncomplicated (5) HIV (human immunodeficiency virus infection): Status: Acute Code(s): Z21 - Asymptomatic human immunodeficiency virus [HIV] infection status Plan Ms. Chun is a 69 year-old woman who was transported via EMS to [facility] after she called 911 reporting difficulty urinating and losing weight. Per EMS, apartment was empty and there was no food. She presented with illogical thought formation, thought blocking, not oriented to situation. medical work up grossly unremarkable. On the unit, pt presents slightly more organized than described in medical records. However, she is not able to explain reasons for her to throw all medications. She reports she planned to move to [place], but unable to elaborate much. Her orientation to situation is also limited as she reports she is here due to difficulty urinating. Whle at [employer] she was started on risperidone, currently on 1mg po qhs. She does presented with EPS. Will change to olanzapine to help also with weight gain. Poor historian. Pending collateral information from sister, Anastasia Chun [phone]. She sees PCP Lakia Valenzuela. HIV provider Khari Zavala. Will contact them as well. Pt with no clear psychiatric hx, presenting with both s/s of psychosis and cognitive/memory deficits. We discussed risks, benefits and alternative treatment options. Will order UA, none completed at [facility]. Will also ordered head CT as part of memory/cognitive assessment. Will obtain HIV viral load, efficacy of tx and potential complications of HIV. Will repeat CBC, slightly lower Hbg on 11/03 from 10/28 at [facility]. A1c 5.5% Lipid panel wnl. I did add RPR. PLAN 11/05 amlodipine 2.5mg po once given for HTN. continue olanzapine. 11/06 continue tx. BP elevated again. RN reported bilat edema, given lasix 11/07 seen by cardiology due to dizziness, somewhat erradic BP as it can be elevated but drops drastically with lower doses of amlodipine. Cardiology reports keeping amlodipine at 2.5mg po daily, not increasing this any further. encourage fluids. hospitalist consult for unexpected weight loss and anorexia. 11/08: 2L IV fluids yesterday. no complaints today. continue current mgmt. 11/09: stable presentation. recheck [facility]. 11/10 continue tx. plan to d/c this week. Reason for continued inpatient stay Substantial Risk for: inability to function Time Spent With Patient Time: Total time managing care of this patient today ____ minutes.
[2024-11-10 12:10] VITALS: BP 129/59; PULSE 99; TEMP 37.3
[2024-11-10 14:28] LABS: Adenovirus PCR Not Detected (Not Detect.); Bordetella parapertussis PCR Not Detected (Not Detect.); Bordetella pertussis PCR Not Detected (Not Detect.); Chlamydia pneumoniae PCR Not Detected (Not Detect.); Coronavirus 229E PCR Not Detected (Not Detect.); Coronavirus HKU1 PCR Not Detected (Not Detect.); Coronavirus NL63 PCR Not Detected (Not Detect.); Coronavirus OC43 PCR Not Detected (Not Detect.); Human metapneumovirus PCR Not Detected (Not Detect.); Influenza A PCR Not Detected (Not Detect.); Influenza B PCR Not Detected (Not Detect.); Mycoplasma pneumoniae PCR Not Detected (Not Detect.); Parainfluenza 1 PCR Not Detected (Not Detect.); Parainfluenza 2 PCR Not Detected (Not Detect.); Parainfluenza 3 PCR Not Detected (Not Detect.); Parainfluenza 4 PCR Not Detected (Not Detect.); RSV PCR Not Detected (Not Detect.); Rhino/Enterovirus PCR Not Detected (Not Detect.)
[2024-11-10 14:37] LABS: Influenza A H1 PCR Not Detected (Not Detect.); Influenza A H1-2009 PCR Not Detected (Not Detect.); Influenza A H3 PCR Not Detected (Not Detect.); SARS-CoV-2 PCR Not Detected (Not Detect.)
--- NOTE | 2024-11-10 15:03 | MHC.CLN ---
F/U DIET=REGULAR. ENSURE TID PROVIDES 1050 KCALS, 60 G PROTEIN. CURRENT INTAKE VERY GOOD, WITH MOST MEALS 100%. FAVORABLE WEIGHT GAIN WITH BMI NOW 19.2. FOLLOW FOR INTAKE AT MEALS. ENCOURAGE SNACKS AND SUPPLEMENT ABLE. RD TO FOLLOW UP 11/14.
[2024-11-10 20:00] VITALS: BP 169/75; PULSE 109; RESP 18; TEMP 37; O2SAT 95
[2024-11-10] MEDS: OLANZapine 5 MG TABLET PO (20:15)
[2024-11-10] MEDS: clonazePAM 0.5 MG TABLET PO (20:15)
[2024-11-11 06:00] VITALS: BMI 20.2
[2024-11-11 08:42] VITALS: BP 148/67
[2024-11-11] MEDS: amLODIPine Besylate 2.5 MG TABLET PO (08:42)
[2024-11-11] MEDS: methADONE HCl 20 MG/2 ML ORAL.CONC 43 MG PO (08:43)
[2024-11-11] MEDS: Bictegrav/Emtricit/Tenofov Ala TABLET 1 TAB PO (08:43)
[2024-11-11] MEDS: OLANZapine 2.5 MG TABLET PO (08:43)
[2024-11-11] MEDS: Multivitamin TABLET 1 TAB PO (08:43)
[2024-11-11 08:45] VITALS: BP 148/67; PULSE 86; RESP 16; TEMP 36.9; O2SAT 98
--- NOTE | 2024-11-11 10:18 | HO.PSYCHPN ---
Subjective Subjective Date of Service: 11/11/24 Reason For Visit: Psychotic disorder unspecified, Schizophrenia Subjective Notes: Conditional Voluntary Interim History: Pt slept through the night. Pt reports feeling well. No dizziness. No SI/HI. no signs of psychosis or delusions. Pt denies depression or anxious mood. Medication Compliance: Yes Review of Systems Review of Systems No SOB, No changes in vision. No constipation nor loose stools. Pt reports unplanned weight loss, difficulty urinating. Yes all other systems are reviewed and are negative Mental Status Exam Mental Status Exam Narrative: Appearance: wearing hospital gown, thin, malnourished, in NAD Behavior: cooperative Psychomotor: no agitation or retardation noted. tremulous. Speech: mostly clear, some delayed in response, spontaneous TP: mostly linear, some poverty of thought TC: no complaints Mood: not expressed Affect: congruent, somewhat constricted SI: denies HI: denies VH/AH: denies but appears at times internally preoccupied. Delusions: no overt delusions, but some bizarre behaviors she can't completely explain like throwing medications because they don't work. giving up furniture Insight/judgment: improving x 2. Memory/cog: alert, oriented x3 not so much about situation, continues to report she is here due to difficulty urinating. MOCA completed on 11/05/2024 scored 19/30 most impairements in visuospatial/executive (2/5), naming (2/3), language fluency (0/1), recall (3/5). Orientation to month/year/place/day/date/city intact. Diagnostics Vital Signs (24Hr): Vital Signs - 24 hr 11/10/24 12:10 11/10/24 20:00 11/11/24 08:42 Temperature 99.1 F 98.6 F Pulse Rate 99 109 H Respiratory Rate 18 Blood Pressure 129/59 L 169/75 H 148/67 H Pulse Oximetry 95 Oxygen Delivery Method Room Air 11/11/24 08:45 Temperature 98.4 F Pulse Rate 86 Respiratory Rate 16 Blood Pressure 148/67 H Pulse Oximetry 98 Oxygen Delivery Method Room Air BMI result Body Mass Index 19.2 Labs 11/04/24 11:53 11/09/24 14:43 Labs: Laboratory Results - last 48 hr 11/09/24 11/10/24 14:43 12:54 Sodium 142 Potassium 4.4 Chloride 101 Carbon Dioxide 33 H Anion Gap 12 BUN 30 H Creatinine 1.34 Estim Creat Clear Calc 29.9 Estimated GFR 39 Random Glucose 115 Calcium 9.2 Respiratory Panel Jerome See Note Adenovirus (Rapid PCR) Not Detected B.pert (TEM-PCR) Not Detected B.parapertussis DNA PCR Not Detected C. pneumoniae DNA (PCR) Not Detected Coronavirus OC43 (PCR) Not Detected Coronavirus HKU1 (PCR) Not Detected Coronavirus 229E (PCR) Not Detected Coronavirus NL63 (PCR) Not Detected Human Metapneumovir PCR Not Detected Influenza A (RT-PCR) Not Detected Influenza A (H1) PCR Not Detected Influ A (H1/09) PCR Not Detected Influenza A (H3) PCR Not Detected Influenza B (RT-PCR) Not Detected M. pneumoniae (PCR) Not Detected Parainfluenza 1 (PCR) Not Detected Parainfluenza 2 (PCR) Not Detected Parainfluenza 3 (PCR) Not Detected Parainfluenza 4 (PCR) Not Detected RSV (PCR) Not Detected Entero/Rhino (PCR) Not Detected SARS-CoV-2 RNA (RT-PCR) Not Detected Imaging Radiology Impressions: ITS Impressions Head CT 11/04/24 14:52 IMPRESSION: No acute intracranial process seen. Electronically signed by: Mark John MD 11/04/2024 03:59 PM EDT Medications Medications Current Medications Acetaminophen (Acetaminophen 325 Mg Tablet) 650 mg PO Q6H PRN PRN Reason: Headache/Pain, Scale 1-10 Last Admin: 11/08/24 20:12 Dose: 650 mg Al Hydroxide/Mg Hydroxide (Magnesium Hydrox/Alum Hydrox 30 Ml Oral.Susp) 30 ml PO Q6H PRN PRN Reason: Heartburn/Nausea Amlodipine Besylate (Amlodipine Besylate 2.5 Mg Tablet) 2.5 mg PO DAILY [facility]; Protocol Last Admin: 11/11/24 08:42 Dose: 2.5 mg Bictegravir/Emtricitabine/Tenofovir (Bictegrav/Emtricit/Tenofov Ala Tablet) 1 tab PO DAILY [facility] Last Admin: 11/11/24 08:43 Dose: 1 tab Clonazepam (Clonazepam 0.5 Mg Tablet) 0.5 mg PO BID PRN PRN Reason: moderate anxiety Last Admin: 11/10/24 20:15 Dose: 0.5 mg Magnesium Hydroxide (Milk Of Magnesia 30 Ml Oral.Susp) 30 ml PO DAILY PRN PRN Reason: Constipation Methadone HCl (Methadone Hcl 20 Mg/2 Ml Oral.Conc) 43 mg PO DAILY@0800 [facility] Last Admin: 11/11/24 08:43 Dose: 43 mg Multivitamins/Vitamin C (Multivitamin Tablet) 1 tab PO DAILY [facility] Last Admin: 11/11/24 08:43 Dose: 1 tab Olanzapine (Olanzapine 2.5 Mg Tablet) 2.5 mg PO Q6H PRN PRN Reason: Agitation Olanzapine (Olanzapine 5 Mg Tablet) 5 mg PO BEDTIME [facility] Last Admin: 11/10/24 20:15 Dose: 5 mg Olanzapine (Olanzapine 2.5 Mg Tablet) 2.5 mg PO DAILY [facility] Last Admin: 11/11/24 08:43 Dose: 2.5 mg Trazodone HCl (Trazodone Hcl 50 Mg Tablet) 50 mg PO BEDTIME PRN PRN Reason: Insomnia Last Admin: 11/08/24 20:13 Dose: 50 mg Allergies Allergies Allergy/AdvReac Type Severity Reaction Status Date / Time Penicillins Allergy Unknown Verified 11/03/24 21:14 Assessment & Plan Assessment & Plan (1) Psychosis: Status: Acute Code(s): F29 - Unspecified psychosis not due to a substance or known physiological condition (2) Cognitive impairment: Status: Acute Code(s): R41.89 - Other symptoms and signs involving cognitive functions and awareness (3) Dizziness: Status: Acute Code(s): R42 - Dizziness and giddiness Assessment and Plan: Per cardiology: We checked orthostatic vital signs yesterday and they were positive. She was given 1 L of fluids. She is saying she is feeling better today. Her main issue is that she is not eating and drinking and has unintentional weight loss currently. This needs further workup. Encouraged her to drink more. Avoid any diuretics. Blood pressure is elevated. I think she can be started on 2.5 mg amlodipine daily. Would not titrate the dose currently. (4) Opioid use disorder: Status: Acute Code(s): F11.90 - Opioid use, unspecified, uncomplicated (5) HIV (human immunodeficiency virus infection): Status: Acute Code(s): Z21 - Asymptomatic human immunodeficiency virus [HIV] infection status Plan Ms. Chun is a 69 year-old woman who was transported via EMS to [facility] after she called 911 reporting difficulty urinating and losing weight. Per EMS, apartment was empty and there was no food. She presented with illogical thought formation, thought blocking, not oriented to situation. medical work up grossly unremarkable. On the unit, pt presents slightly more organized than described in medical records. However, she is not able to explain reasons for her to throw all medications. She reports she planned to move to [place], but unable to elaborate much. Her orientation to situation is also limited as she reports she is here due to difficulty urinating. Whle at [facility] she was started on risperidone, currently on 1mg po qhs. She does presented with EPS. Will change to olanzapine to help also with weight gain. Poor historian. Pending collateral information from sister, Anastasia Chun [phone]. She sees PCP Lakia Valenzuela. HIV provider Khari Zavala. Will contact them as well. Pt with no clear psychiatric hx, presenting with both s/s of psychosis and cognitive/memory deficits. We discussed risks, benefits and alternative treatment options. Will order UA, none completed at [facility]. Will also ordered head CT as part of memory/cognitive assessment. Will obtain HIV viral load, efficacy of tx and potential complications of HIV. Will repeat CBC, slightly lower Hbg on 11/03 from 10/28 at [facility]. A1c 5.5% Lipid panel wnl. I did add RPR. PLAN 11/05 amlodipine 2.5mg po once given for HTN. continue olanzapine. 11/06 continue tx. BP elevated again. RN reported bilat edema, given lasix 11/07 seen by cardiology due to dizziness, somewhat erradic BP as it can be elevated but drops drastically with lower doses of amlodipine. Cardiology reports keeping amlodipine at 2.5mg po daily, not increasing this any further. encourage fluids. hospitalist consult for unexpected weight loss and anorexia. 11/08: 2L IV fluids yesterday. no complaints today. continue current mgmt. 11/09: stable presentation. recheck [facility]. 11/10 continue tx. plan to d/c this week. 11/11 continue tx. Reason for continued inpatient stay Substantial Risk for: inability to function Time Spent With Patient Time: Total time managing care of this patient today ____ minutes.
[2024-11-11 20:00] VITALS: BP 150/72; PULSE 99; RESP 16; TEMP 36.6; O2SAT 96
[2024-11-11] MEDS: OLANZapine 5 MG TABLET PO (20:38)
[2024-11-11] MEDS: clonazePAM 0.5 MG TABLET PO (20:38)
[2024-11-11] MEDS: traZODone HCL 50 MG TABLET PO (20:38)
[2024-11-11 22:25] VITALS: BP 131/63; PULSE 93; RESP 16
[2024-11-12 08:00] VITALS: BP 158/75; PULSE 82; RESP 16; TEMP 36.9; O2SAT 98
[2024-11-12] MEDS: methADONE HCl 20 MG/2 ML ORAL.CONC 43 MG PO (08:34)
[2024-11-12] MEDS: amLODIPine Besylate 2.5 MG TABLET PO (08:35)
[2024-11-12] MEDS: Multivitamin TABLET 1 TAB PO (08:35)
[2024-11-12] MEDS: OLANZapine 2.5 MG TABLET PO (08:35)
[2024-11-12] MEDS: Bictegrav/Emtricit/Tenofov Ala TABLET 1 TAB PO (08:35)
--- NOTE | 2024-11-12 16:42 | P.PNPSI_ITS ---
Subjective Subjective Date of Service: 11/12/24 Reason For Visit: Psychotic disorder unspecified, Schizophrenia Subjective Notes: Conditional Voluntary Interim History: Pt slept through the night. She is taking medications as prescribed. She denies dizziness, reports eating better and increased appetite. BP continues to be elevated, may need higher dose of amlodipine. No overt delusions or psychosis. she reports she is ready to be discharged. Medication Compliance: Yes Review of Systems Review of Systems No SOB, No changes in vision. No constipation nor loose stools. Pt reports unplanned weight loss, difficulty urinating. Yes all other systems are reviewed and are negative Mental Status Exam Mental Status Exam Narrative: Appearance: wearing hospital gown, thin, malnourished, in NAD Behavior: cooperative Psychomotor: no agitation or retardation noted. tremulous. Speech: mostly clear, less delayed in response, spontaneous TP: mostly linear, some poverty of thought TC: no complaints Mood: not expressed Affect: congruent, somewhat constricted SI: denies HI: denies VH/AH: denies but appears at times internally preoccupied. Delusions: no overt delusions, but some bizarre behaviors she can't completely explain like throwing medications because they don't work. giving up furniture Insight/judgment: improving x 2. Memory/cog: alert, oriented x3 not so much about situation, continues to report she is here due to difficulty urinating. MOCA completed on 11/05/2024 scored 19/30 most impairements in visuospatial/executive (2/5), naming (2/3), language fluency (0/1), recall (3/5). Orientation to month/year/place/day/date/city intact. Diagnostics Vital Signs (24Hr): Vital Signs - 24 hr 11/11/24 20:00 11/11/24 22:25 11/12/24 08:00 Temperature 97.8 F 98.4 F Pulse Rate 99 93 82 Respiratory Rate 16 16 16 Blood Pressure 150/72 H 131/63 158/75 H Pulse Oximetry 96 98 Oxygen Delivery Method Room Air Room Air BMI result Body Mass Index 20.2 Labs 11/04/24 11:53 11/09/24 14:43 Imaging Radiology Impressions: ITS Impressions Head CT 11/04/24 14:52 IMPRESSION: No acute intracranial process seen. Electronically signed by: Mark John MD 11/04/2024 03:59 PM EDT RP Medications Medications Current Medications Acetaminophen (Acetaminophen 325 Mg Tablet) 650 mg PO Q6H PRN PRN Reason: Headache/Pain, Scale 1-10 Last Admin: 11/08/24 20:12 Dose: 650 mg Al Hydroxide/Mg Hydroxide (Magnesium Hydrox/Alum Hydrox 30 Ml Oral.Susp) 30 ml PO Q6H PRN PRN Reason: Heartburn/Nausea Amlodipine Besylate (Amlodipine Besylate 2.5 Mg Tablet) 2.5 mg PO DAILY [facility]; Protocol Last Admin: 11/12/24 08:35 Dose: 2.5 mg Bictegravir/Emtricitabine/Tenofovir (Bictegrav/Emtricit/Tenofov Ala Tablet) 1 tab PO DAILY [facility] Last Admin: 11/12/24 08:35 Dose: 1 tab Clonazepam (Clonazepam 0.5 Mg Tablet) 0.5 mg PO BID PRN PRN Reason: moderate anxiety Last Admin: 11/11/24 20:38 Dose: 0.5 mg Magnesium Hydroxide (Milk Of Magnesia 30 Ml Oral.Susp) 30 ml PO DAILY PRN PRN Reason: Constipation Methadone HCl (Methadone Hcl 20 Mg/2 Ml Oral.Conc) 43 mg PO DAILY@0800 [facility] Last Admin: 11/12/24 08:34 Dose: 43 mg Multivitamins/Vitamin C (Multivitamin Tablet) 1 tab PO DAILY [facility] Last Admin: 11/12/24 08:35 Dose: 1 tab Olanzapine (Olanzapine 2.5 Mg Tablet) 2.5 mg PO Q6H PRN PRN Reason: Agitation Olanzapine (Olanzapine 5 Mg Tablet) 5 mg PO BEDTIME [facility] Last Admin: 11/11/24 20:38 Dose: 5 mg Olanzapine (Olanzapine 2.5 Mg Tablet) 2.5 mg PO DAILY [facility] Last Admin: 11/12/24 08:35 Dose: 2.5 mg Trazodone HCl (Trazodone Hcl 50 Mg Tablet) 50 mg PO BEDTIME PRN PRN Reason: Insomnia Last Admin: 11/11/24 20:38 Dose: 50 mg Allergies Allergies Allergy/AdvReac Type Severity Reaction Status Date / Time Penicillins Allergy Unknown Verified 11/03/24 21:14 Assessment & Plan Assessment & Plan (1) Psychosis: Status: Acute Code(s): F29 - Unspecified psychosis not due to a substance or known physiological condition (2) Cognitive impairment: Status: Acute Code(s): R41.89 - Other symptoms and signs involving cognitive functions and awareness (3) Dizziness: Status: Acute Code(s): R42 - Dizziness and giddiness Assessment and Plan: Per cardiology: We checked orthostatic vital signs yesterday and they were positive. She was given 1 L of fluids. She is saying she is feeling better today. Her main issue is that she is not eating and drinking and has unintentional weight loss currently. This needs further workup. Encouraged her to drink more. Avoid any diuretics. Blood pressure is elevated. I think she can be started on 2.5 mg amlodipine daily. Would not titrate the dose currently. (4) Opioid use disorder: Status: Acute Code(s): F11.90 - Opioid use, unspecified, uncomplicated (5) HIV (human immunodeficiency virus infection): Status: Acute Code(s): Z21 - Asymptomatic human immunodeficiency virus [HIV] infection status Plan Ms. Chun is a 69 year-old woman who was transported via EMS to [facility] after she called 911 reporting difficulty urinating and losing weight. Per EMS, apartment was empty and there was no food. She presented with illogical thought formation, thought blocking, not oriented to situation. medical work up grossly unremarkable. On the unit, pt presents slightly more organized than described in medical records. However, she is not able to explain reasons for her to throw all medications. She reports she planned to move to [place], but unable to elaborate much. Her orientation to situation is also limited as she reports she is here due to difficulty urinating. Whle at [facility] she was started on risperidone, currently on 1mg po qhs. She does presented with EPS. Will change to olanzapine to help also with weight gain. Poor historian. Pending collateral information from sister, Anastasia Chun [phone]. She sees PCP Lakia Valenzuela. HIV provider Khari Zavala. Will contact them as well. Pt with no clear psychiatric hx, presenting with both s/s of psychosis and cognitive/memory deficits. We discussed risks, benefits and alternative treatment options. Will order UA, none completed at [facility]. Will also ordered head CT as part of memory/cognitive assessment. Will obtain HIV viral load, efficacy of tx and potential complications of HIV. Will repeat CBC, slightly lower Hbg on 11/03 from 10/28 at [facility]. A1c 5.5% Lipid panel wnl. I did add RPR. PLAN 11/05 amlodipine 2.5mg po once given for HTN. continue olanzapine. 11/06 continue tx. BP elevated again. RN reported bilat edema, given lasix 11/07 seen by cardiology due to dizziness, somewhat erradic BP as it can be elevated but drops drastically with lower doses of amlodipine. Cardiology reports keeping amlodipine at 2.5mg po daily, not increasing this any further. encourage fluids. hospitalist consult for unexpected weight loss and anorexia. 11/08: 2L IV fluids yesterday. no complaints today. continue current mgmt. 11/09: stable presentation. recheck [facility]. 11/10 continue tx. plan to d/c this week. 11/11 continue tx. 11/12 continue tx. Reason for continued inpatient stay Substantial Risk for: inability to function Time Spent With Patient Time: Total time managing care of this patient today ____ minutes.
[2024-11-12] MEDS: OLANZapine 5 MG TABLET PO (19:56)
[2024-11-12] MEDS: traZODone HCL 50 MG TABLET PO (19:56)
[2024-11-12 20:00] VITALS: BP 160/76; PULSE 93; RESP 16; TEMP 36.6; O2SAT 97
[2024-11-13 08:00] VITALS: BP 162/73; PULSE 98; RESP 18; TEMP 37.2; O2SAT 97
[2024-11-13] MEDS: methADONE HCl 20 MG/2 ML ORAL.CONC 43 MG PO (08:25)
[2024-11-13 10:07] VITALS: BP 162/73
--- NOTE | 2024-11-13 10:10 | PC.NURSE ---
Pt took Methadone this am; refused rest of her am meds. BP 162/73, P 98. Karyn Christianson NP notified.
--- NOTE | 2024-11-13 10:24 | PM.PSYDC ---
DS: Providers Provider Date of Service: 11/13/24 Date of admission: 11/03/24 21:00 Date of discharge: 11/13/24 Primary care physician: Lakia Valenzuela MD Consults: 11/03/24 21:16 Consult to Hospitalist Routine Comment: Consulting Provider: [facility] Hospital[facility] Reason For Exam: OSH admission 11/06/24 14:19 Consult to Cardiology Routine Consulting Provider: [facility] Reason for consultation: tachycardia, lightheaded Has provider been notified: Yes 11/07/24 15:51 Consult to Hospitalist Routine Comment: Consulting Provider: [facility] Hospital[facility] Reason For Exam: unexpected weight loss DS: Diagnosis Discharge Diagnosis (1) Psychosis: Status: Acute (2) Cognitive impairment: Status: Acute (3) Dizziness: Status: Acute (4) Opioid use disorder: Status: Acute (5) HIV (human immunodeficiency virus infection): Status: Acute DS: Medications Discharge Medications Home Medications: Home Medications ?Medication ?Instructions ?Recorded ?Confirmed methadone 10 mg/5 mL oral solution 43 mg PO DAILY 11/03/24 11/04/24 Previous Rx's ?Medication ?Instructions ?Recorded alendronate 70 mg tablet (Fosamax) 70 mg PO QWEEK #4 tabs 11/12/24 amlodipine 2.5 mg tablet 2.5 mg PO DAILY #30 tabs 11/12/24 bictegravir 50 mg-emtricitabine 1 tab PO DAILY #30 tabs 11/12/24 200 mg-tenofovir alafenam 25 mg tablet (Biktarvy) clonazepam 0.5 mg tablet 0.5 mg PO BID PRN moderate anxiety 11/12/24 #30 tabs multivitamin (Daily-Junior tablet) 1 tab PO DAILY #30 tabs 11/12/24 olanzapine 2.5 mg tablet 2.5 mg PO DAILY #30 tabs 11/12/24 olanzapine 5 mg tablet 5 mg PO BEDTIME #30 tabs 11/12/24 trazodone 50 mg tablet 50 mg PO BEDTIME PRN Insomnia #30 11/12/24 tabs Mental Status Exam Mental Status Exam Narrative: Appearance: wearing hospital gown, thin, malnourished, in NAD Behavior: cooperative Psychomotor: no agitation or retardation noted. tremulous. Speech: mostly clear, some delayed in response, spontaneous TP: mostly linear, some poverty of thought TC: no complaints Mood: not expressed Affect: congruent, somewhat constricted SI: denies HI: denies VH/AH: denies but appears at times internally preoccupied. Delusions: no overt delusions, but some bizarre behaviors she can't completely explain like throwing medications because they don't work. giving up furniture Insight/judgment: improving x 2. Memory/cog: alert, oriented x3 not so much about situation, continues to report she is here due to difficulty urinating. MOCA completed on 11/05/2024 scored 19/30 most impairements in visuospatial/executive (2/5), naming (2/3), language fluency (0/1), recall (3/5). Orientation to month/year/place/day/date/city intact. Data Data Completed and Pending Completed studies during hospitalization [Text1]: 11/04/24 11/09/24 11/10/24 11:53 14:43 12:54 Sodium 142 Potassium 4.4 Chloride 101 Carbon Dioxide 33 H Anion Gap 12 BUN 30 H Creatinine 1.34 Estim Creat Clear Calc 29.9 Estimated GFR 39 Random Glucose 115 Calcium 9.2 Respiratory Panel Jerome See Note Adenovirus (Rapid PCR) Not Detected B.pert (TEM-PCR) Not Detected B.parapertussis DNA PCR Not Detected C. pneumoniae DNA (PCR) Not Detected Coronavirus OC43 (PCR) Not Detected Coronavirus HKU1 (PCR) Not Detected Coronavirus 229E (PCR) Not Detected Coronavirus NL63 (PCR) Not Detected HIV-1 RNA copies/mL NOT DETECTED HIV-1 RNA logcopies/mL NOT DETECTED Human Metapneumovir PCR Not Detected Influenza A (RT-PCR) Not Detected Influenza A (H1) PCR Not Detected Influ A (H1/09) PCR Not Detected Influenza A (H3) PCR Not Detected Influenza B (RT-PCR) Not Detected M. pneumoniae (PCR) Not Detected Parainfluenza 1 (PCR) Not Detected Parainfluenza 2 (PCR) Not Detected Parainfluenza 3 (PCR) Not Detected Parainfluenza 4 (PCR) Not Detected RSV (PCR) Not Detected Entero/Rhino (PCR) Not Detected SARS-CoV-2 RNA (RT-PCR) Not Detected 11/05/24 14:00 Urine clean catch - Clean Catch Midstream Urine Culture - Final No growth. Imaging Diagnostic Imaging Impressions Head CT 11/04/24 14:52 IMPRESSION: No acute intracranial process seen. Electronically signed by: Mark John MD 11/04/2024 03:59 PM EDT RP DS: Summary Hospital Course Hospital Course: Ms. Chun is a 69 year-old woman who came via EMS on 11/02/2024 to [facility] after she called 911 reporting difficulty urinating. Per EMS, pt found to be in empty apartment with no food. She had also reported she had threw out all of her medications on 11/01 including methadone and HIV medications for unclear reason. Pt was assessed by psychiatry, who reports pt was oriented to place and person but could not provide much answers as to what was going on at home and physically with her. She apparently presented with illogical thought form, thought blocking. She has [place] [facility] [place] hx of psychosis but unclear psychiatric diagnosis and history. She had presented earlier in the week on 10/28/2024 to [facility] [place] reporting weight loss and vague history related to it, she was at that time discharged back home. Pertinent lab completed in the ED include CBC normocytic enemia stable Hbg 11.9, Hct 35.4, Plts 114. CMP with no electrolyte abnormalities. BUN 34, Cr 0.38, creatinine clearance 75. LFT wnl. No head image obtained. UA not completed, although pt had reported difficulty urinating. TSH 0.17 (low) with normal free T4. On the unit, pt presents as calm, somewhat anxious. She reports she called 911 because she had difficulty urinating. When asked if she is having urges but unable to urinate, she reports she is urinating. She denies burning sensation, but is also very vague in her report. She continues to report difficulty urinating. She reports feeling light headed at times and weak. Note that SBP this morning was in 190's, given one time dose of amlodipine 2.5mg po and SBP later in 119/60. She also reports weight loss for some time. She reports feeling hungry and appetite seems as usual. She reports fair sleep. When asked about why furniture was not in the home, she reported she had been at her apartment since 1996 but had asked people to take all her furniture. She did mention she was born in [place] and has family there and wanted to go back to [place]. When asked about why she threw all her medications, she corroborates that she threw them all because they were not working. When asked about how were these medications not working, pt reports I'm losing weight. She reports she goes to regular PCP appointments but not sure if she had mentioned to her PCP her weight loss. She denies SI/HI. She denies symptoms of depression or anxiety. She denies VH/AH, although does at times appear internally preoccupied. She reports she has had outpatient psychiatric services many years ago for depression but denies hx of inpatient psychiatric admission. She also denies hx of suicide attempt. She denies s/s consistent with loan or hypomania. Past Psychiatric History: Inpt: pt denies prior inpt psychiatric admission OP: pt reports she received OP services through [facility] some years ago, but lost insurance and was not able to continue. Past medication trials: clonazepam. not able to remember other medications. HOSPITAL COURSE On the unit, pt was admitted on a CV and placed on 15 minutes checks for safety. She presented with some degree of delayed response. She reported she did not know why she threw her medications but felt they did not work. She could not provide more details about it. She was somewhat guarded and suspicious but no overt delusional content reported or noted. We discussed risks, benefits and alternative treatment options. She was switched from risperidone to olanzapine as she seemd to have some action tremors and mild cogwheel bilat. Also, to help increase appetite as pt had reported decreased oral intake. She denied SI/HI. She was sleeping better. She was taking medications as prescribed. BP elevated but also pt reported feeling dizzy. She was seen by helper/driver who recommended careful increase in BP medication due to orthostatic changes, added amlodipine 2.5mg po daily during admission. Her affect presented less guarded, slightly brighter. No behavioral concerns. She agreed to return back home with VNA services. Memory/cognitive assessements were completed. MOCA completed on 11/05/2024 scored 19/30 most impairments in visuospatial/executive (2/5), naming (2/3), language fluency (0/1), recall (3/5). Orientation to month/year/place/day/date/city intact. We had family meeting with her sister and communicated memory/cog assessments and medication for psychosis. HIV viral load was undetected. Less concern in terms of HIV contributing as much to worsening cognition or memory. Status at Discharge Cognitive/behavioral status at discharge: Pt with slightly brighter affect. No SI/HI. No overt psychosis or delusions. POverty of thought. sleeping and eating better. No aggression towards self or others. Functional status at discharge: independent ambulation Overall status at discharge: patient is progressing back to baseline Time Spent with Patient Time attestation: Total time managing care of this patient today ____ minutes. Discharge Plan Discharge Anticipated Discharge Date/Time: 11/13/24 09:46 Patient Disposition: Home, Self-Care Discharge Diagnosis: psychosis opioid use disorder Referrals: [facility] [employer] Helper: Ana Reevess [Other] - 11/14/24 ([place] will be following up with you on 11/14/24 via phone. You may call Ana for assistance in accessing services or other needs at the above number and [phone]. If unable to enter an extension, wait to get to member services menu, then press the prompts 1 and then 3. ) VNA: [facility] [Other] - 1 Day (The nurse will call you afternoon or Sunday morning to let you know which day or time they will come out. You can expect the nurse either or Sunday. ) Methadone Clinic: [facility] [Other] - 11/14/24 5:30 am (Bring last dose letter and discharge paperwork. [facility] transportation will pick you up at your home at 5:30am and pick you up at the clinic to bring you home at 7:30am ) Busperson: Hank Hickey ([facility]) [Other] - 11/13/24 2:00 pm (Hank is your case assembler at [facility] and can be reached at the above number and Ext. [phone]. He will be giving you a call 11/13 around 2-2:30pm and plan to come visit you at home on 11/14 or 11/17. He will assist in setting up homemaking services and can offer home delivered meals. ) Lakia Valenzuela MD [Primary Care Provider] - 1 Week Discharge Medications: New Biktarvy 50-200-25 mg Tablet 1 tab PO DAILY Qty: 30 0RF multivitamin [Daily-Junior] Tablet 1 tab PO DAILY Qty: 30 0RF trazodone 50 mg Tablet 50 mg PO BEDTIME PRN (Reason: Insomnia) Qty: 30 0RF clonazepam 0.5 mg Tablet 0.5 mg PO BID PRN (Reason: moderate anxiety) Qty: 30 0RF olanzapine 5 mg Tablet 5 mg PO BEDTIME Qty: 30 0RF amlodipine 2.5 mg Tablet 2.5 mg PO DAILY Qty: 30 0RF Protocol: Hold for SBP< HOLD for SBP < : 90 olanzapine 2.5 mg Tablet 2.5 mg PO DAILY Qty: 30 0RF Continued methadone 10 mg/5 mL Solution 43 mg PO DAILY alendronate [Fosamax] 70 mg Tablet 70 mg PO QWEEK Qty: 4 0RF Discontinued clonazepam 1 mg tablet 1 mg PO BID PRN (Reason: anxiety) furosemide 20 mg tablet 20 mg PO DAILY PRN (Reason: swelling) Biktarvy 50-200-25 mg tablet 1 tab PO DAILY trazodone 50 mg Tablet 25 mg PO BID PRN (Reason: Insomnia) olanzapine 2.5 mg Tablet 2.5 mg PO Q6H PRN (Reason: Agitation) risperidone [Risperdal] 1 mg Tablet 1 mg PO BEDTIME multivitamin Tablet 1 tab PO DAILY Calcium 600 with Vitamin D3 600 mg-10 mcg (400 unit) Tablet,Chewable 1 tab PO DAILY Discharge Orders: Discharge Order (Routine); Ordered 11/13/24 Ordered By: Karyn Waggoner Diet: Regular diet Activity on Discharge: As tolerated Stand Alone Forms: Patient Portal Discharge page, Community Support Print Language: Belizean Care Plan Goals: 1. maintain mood 2. No SI/HI 3. Less Health Concerns: follow up with PCP Plan of Treatment: 1. take medications as prescribed 2. go to nearest ED or call 911 in event of emergency Assessment: pt with constricted affect. No SI/HI. No VH/AH. sleeping and eating better. Discharge Date/Time: 11/13/24 11:13
--- NOTE | 2024-11-13 11:28 | PC.NURSE ---
Pt was aware of her discharge, reported readiness for discharge. D/C instructions together with 2 doses of Narcan and medications from [facility] given to the pt. Also sealed envelope with paper including last dose of Methadone given to the pt. Zakiya took her belongings with her. Left the unit at 11:13. Her wallet and cards from security will be mailed to her since she left the hospital already.
== END 2024-11-13 11:13 | disposition home or self-care (01) | DRG 885 ==
PROVIDERS: Psychiatry & Neurology Psychiatry; Social Worker; Admitting Provider Psychiatry & Neurology Psychiatry; PCP Internal Medicine; Visit Provider Psychiatry & Neurology Psychiatry
DX: F29 Unspecified psychosis not due to a substance or known physiological condition (principal); F11.20 Opioid dependence, uncomplicated; Z68.1 Body mass index [BMI] 19.9 or less, adult; R63.6 Underweight; Z21 Asymptomatic human immunodeficiency virus [HIV] infection status; I10 Essential (primary) hypertension; Z59.41 Food insecurity; Z20.822 Contact with and (suspected) exposure to COVID-19; Z79.899 Other long term (current) drug therapy
CPT/HCPCS: 36415; 70450; 80048; 80053; 80061; 81001; 82607; 82746; 83036; 85025; 86592; 87086; 87536; 87633; 93005

== ENCOUNTER → 2024-11-03 21:00 | Outpatient (BNV) | payer OTHER, SELFPAY | PROVIDERS: Admitting Provider Psychiatry & Neurology Psychiatry; PCP Internal Medicine; Visit Provider Internal Medicine Cardiovascular Disease | DX: R42 Dizziness and giddiness (principal) | CPT/HCPCS: 99222 ==

== ENCOUNTER → 2024-11-03 21:00 | Outpatient (BNV) | payer OTHER, SELFPAY | PROVIDERS: Admitting Provider Psychiatry & Neurology Psychiatry; PCP Internal Medicine; Visit Provider Nurse Practitioner Family | DX: R63.6 Underweight (principal); Z21 Asymptomatic human immunodeficiency virus [HIV] infection status; F11.90 Opioid use, unspecified, uncomplicated | CPT/HCPCS: 99222 ==

== ENCOUNTER → 2024-11-03 21:00 | Outpatient (BNV) | payer OTHER, SELFPAY | PROVIDERS: Admitting Provider Psychiatry & Neurology Psychiatry; PCP Internal Medicine; Visit Provider Social Worker | DX: F29 Unspecified psychosis not due to a substance or known physiological condition (principal); F11.90 Opioid use, unspecified, uncomplicated; R41.89 Other symptoms and signs involving cognitive functions and awareness; R42 Dizziness and giddiness; Z21 Asymptomatic human immunodeficiency virus [HIV] infection status | CPT/HCPCS: 90792; 99231; 99232; 99238 ==